=== PATIENT | female | born 1950 | race Caucasian/White ===

== ENCOUNTER 2021-07-16 11:46 | Outpatient (REF) | payer MEDICARE, SELFPAY ==
--- NOTE | ~2021-07-16 | MM_ITS ---
EXAMINATION: MM SCREENING DIGITAL BREAST TOMOSYNTHESIS, BILATERAL CLINICAL INFORMATION: Screening. Asymptomatic. The lifetime risk of breast cancer based on the Tyrer-Cuzick Model is 8%. COMPARISON: Mammography: 12/16/2019, 06/28/2019, 12/04/2018, 05/12/2018, 02/24/2017 TECHNIQUE: Digital breast tomosynthesis is performed in both the craniocaudal and mediolateral oblique views along with computer-aided detection (CAD). Synthesized 2D images are generated from the tomosynthesis. FINDINGS: There are scattered areas of fibroglandular density (ACR BI-RADS breast composition Category b). Parenchymal pattern is similar to prior studies. There is no interval significant mass or architectural abnormality or abnormal calcifications. Right breast again has chronic circumscribed smooth bordered oval mass upper outer quadrant. There are several dermal lesions overlying the posterior inferior right breast. Scattered bilateral vascular and ductal secretory and round calcifications are present. There are increased regional ductal secretory calcifications central right breast. The axilla are unremarkable. MM/MM tomosynthesis screening BI IMPRESSION: No significant changes from prior studies. ASSESSMENT: BI-RADS 2: Benign RECOMMENDATION: Routine annual mammography screening. This patient's information was entered into a reminder system with a target due date for their next mammogram.
== END 2021-07-16 11:47 | disposition home or self-care (01) ==
LOC: HO.MAMMO 11:46
PROVIDERS: Visit Provider Nurse Practitioner Family
DX: Z12.31 Encounter for screening mammogram for malignant neoplasm of breast (principal)
CPT/HCPCS: 77063; 77067

== ENCOUNTER 2021-10-08 12:55 | Outpatient (REF) | payer MEDICARE, SELFPAY ==
--- NOTE | 2021-10-08 16:51 | MHC.AU.ANR ---
Adult Audiological Evaluation Date of Visit: 10/08/21 Reason for Appointment: Audiological evaluation due to concern for decreased hearing. Ms. Ayala states that her family feels she's not hearing well. She notes that sometimes she has to ask for repetition, but generally feels she hears well. Does patient feel they have a hearing loss?: Unsure Has hearing been tested previously?: No Hearing Handicap Inventory: HHIE SCORE: 12 Based on HHIE score, patient has: Mild to moderate perceived hearing handicap Medical History: Medical History: Diabetes, Dizziness or Unsteadiness, High Blood Pressure, Measles, Stroke Medical History (Other): Uterine cancer treated surgically, hysterectomy. Stroke 10 years ago. Hypothyroidism Allergies: Lisinopril Medication List: Losartan, Levothyroxine, Hydrochlorothiazide, Metoprolol, Famotidine, Simvastatin, Clopidogrel bisulfate, Centrum Otoscopy: Right Ear: Unremarkable Left Ear: Unremarkable Tympanometry: Tympanometry performed due to: To assess integrity of the middle ear system Right Ear: Hypercompliant Middle Ear System (Type Ad) Left Ear: Normal Middle Ear System (Type A) Hearing Evaluation: Transducer(s) Used: Insert Earphones, Bone Conduction Method: Conventional Audiometry Stimuli Used: Pure Tones Right Ear: Description of Hearing: Mild hearing loss at 250 Hz, rising to normal hearing 500-1000 Hz, sloping to a mild sensorineural hearing loss 8186-6510 Hz, rising to normal hearing at 3000 Hz, and sloping to a mild to moderately-severe sensorineural hearing loss from 5317-4455 Hz. Left Ear: Description of Hearing: Mild hearing loss at 250 Hz, rising to normal hearing 500-1000 Hz, sloping to a mild sensorineural hearing loss 4691-6246 Hz, rising to normal hearing at 9014-0978 Hz, and sloping to a moderate to moderately-severe hearing loss from 4689-7212 Hz. Speech Recognition Threshold (SRT): Method Used: Monitored Live Voice Stimuli Used: Spondee Words Right Ear: 20 dBHL Left Ear: 20 dBHL Word Discrimination: Method: Recorded Lists Word Lists Used: NU-6 Right Ear: 92% at 60 dBHL Left Ear: 100% at 60 dBHL Recommendations: Audiological re-evaluation in one year to monitor the status of Ms. Ayala's hearing loss. Amplification is not warranted at this time. Hearing protection should be used when around loud noise. Diagnosis: Primary Diagnosis: H90.3 Bilateral Sensorineural Hearing Loss Services Performed: Services Performed: Comprehensive Audiological Evaluation (CPT 46133) Tympanometry (CPT 69667) Signature: Provider: Nathaniel Cervantes, CCC-A
== END 2021-10-08 12:56 | disposition home or self-care (01) ==
LOC: HO.SH 12:55
PROVIDERS: Visit Provider Registered Nurse
DX: H90.3 Sensorineural hearing loss, bilateral (principal)
CPT/HCPCS: 92557; 92567

== ENCOUNTER 2022-07-21 11:46 | Outpatient (REF) | payer MEDICARE, SELFPAY ==
--- NOTE | ~2022-07-21 | MM_ITS ---
EXAMINATION: MM SCREENING DIGITAL BREAST TOMOSYNTHESIS, BILATERAL CLINICAL INFORMATION: Screening. Asymptomatic. The lifetime risk of breast cancer based on the Tyrer-Cuzick Model is 6%. COMPARISON: Mammography: July 16, 2021 and studies dating back to July 14, 2012 TECHNIQUE: Digital breast tomosynthesis is performed in both the craniocaudal and mediolateral oblique views along with computer-aided detection (CAD). Synthesized 2D images are generated from the tomosynthesis. FINDINGS: There are scattered areas of fibroglandular density (ACR BI-RADS breast composition Category b). There are no new significant masses, abnormal calcifications, or other abnormalities. Stable right breast density upper outer aspect. Multiplicity and bilaterality of calcifications. MM/MM tomosynthesis screening BI IMPRESSION: No significant changes from prior exam. ASSESSMENT: BI-RADS 2: Benign RECOMMENDATION: Routine annual mammography screening. This patient's information was entered into a reminder system with a target due date for their next mammogram.
== END 2022-07-21 11:47 | disposition home or self-care (01) ==
LOC: HO.MAMMO 11:46
PROVIDERS: PCP Registered Nurse; Visit Provider Registered Nurse
DX: Z12.31 Encounter for screening mammogram for malignant neoplasm of breast (principal)
CPT/HCPCS: 77063; 77067

== ENCOUNTER → 2023-05-07 10:42 | Outpatient (REF) | payer MEDICARE, SELFPAY ==
--- NOTE | 2023-05-07 10:47 | CA_ITS ---
Transthoracic Echocardiogram Patient (Last, First, Middle): Dania Ayala R Gender: Female Date of : 1950 Age: 73 Procedure Date: 05/07/2023 Procedure Type: Transthoracic Echocardiogram Location: [facility] Height: 165.1 cm Weight: 81.65 kg BSA: 1.89 m2 Heart Rate: 71 bpm BP: 135 / 60 mmHg Commercial Assistant: FELIX Marinelli MD: Leilani Unger EDUCATION PARAPROFESSIONAL Mill Beam Fitter: Norris Boland MD Symptoms: LOWER EXT EDEMA Study Quality: Adequate ECG Rhythm: Sinus Conclusions: - 1. Normal LV systolic function with grade 1 diastolic dysfunction with upper limits of normal wall thickness 2. [id number] RV systolic dysfunction by TAPSE 3. Normal cardiac valvular Dopplers 4. Normal RV systolic pressure 5. No gross pericardial effusion Findings Procedure Information Contrast agent, definity, is being given per protocol without apparent complications. Left Ventricle Normal left ventricular size, thickness, and systolic function. The visually estimated ejection fraction is between 60-65%. Spectral Doppler is indicative of an impaired relaxation filling pattern. E/E prime ratio is <8, consistent with normal filling pressures. Evidence suggests grade I (mild) diastolic dysfunction. Right Ventricle Normal right ventricular cavity size. There is mild to moderately decreased right ventricular systolic function. Atria The left atrium is normal in size. Interatrial shunt cannot be excluded. The right atrium was not well visualized. Aortic Valve Normal aortic valve structure and function. There is no aortic valve stenosis. There is no aortic valve regurgitation. Mitral Valve There is mild anterior and posterior mitral leaflet thickening. There is trace mitral valve regurgitation. There is no mitral valve stenosis. Pulmonic Valve The pulmonic valve was not well visualized. Tricuspid Valve Likely normal tricuspid valve structure and function. There is mild tricuspid valve regurgitation. The right ventricular systolic pressure is normal. The right ventricular systolic pressure is 28 mmHg. Normal right atrial pressure. There is no evidence of pulmonary hypertension. Great Vessels All visible segments of the aorta are normal in size. The pulmonary artery was not well visualized. Venous The inferior vena cava is normal in size and collapses greater than 50% with inspiration. Pericardium/Pleural There is no evidence of pericardial effusion. Prior Study Comparison No prior study available for comparison. Measurements 2D Linear Measurements IVSd: 1.21 0.6-0.9/0.6-1.0 cm LVIDd: 3.93 3.9-5.3/4.2-5.9 cm LVIDd Index: 2.08 2.4-3.2/2.2-3.1 cm/m2 LVIDs: 2.73 2.0-3.6 cm LVPWd: 1.07 0.7-1.1 cm LA Diam: 3.40 2.7-3.8/3.0-4.0 cm LAIDs Index: 1.80 1.5-2.3 cm/m2 LV Mass: 185.94 67-162/88-224 g LV Mass Index: 98.38 43-95/49-115 g/m2 LVOT Diam: 1.90 3.0+(-)1.3 cm 2D Systolic Function EF 4C: 51.10 >55% EF 2C: 66.90 >55% EF BiP: 61.00 >55% Mitral Valve MV Pk E: 0.67 MV PK A: 1.01 MV Decel Time: 309.00 E/A: 0.70 E'Lateral: 9.36 E'Medial: 4.57 E/E' Med: 14.70 E/E' Lat: 7.20 PHT: 90.00 MVA PHT: 2.44 Decel [place]: 2.19 Aortic Valve AoV Pk Dax: 1.71 AoV Mn Dax: 1.02 AoV VTI: 0.29 AoV Pk Grad: 12.00 Aov Mn Grad: 5.00 ASYA Cont.VTI: 2.01 LVOT LVOT Pk Dax: 1.14 LVOT Mn Dax: 0.64 LVOT VTI: 0.21 LVOT Pk Grad: 5.00 LVOT Mn Grad: 2.00 LVOT Diam: 1.90 LVOT Area: 2.84 Diastolic Function MV Pk E: 0.67 MV Pk A: 1.01 E/A: 0.70 E'Medial: 4.57 E/E' Med: 14.70 E' Laterial: 9.36 E/E' Lat: 7.20 Right Ventricle TAPSE (mm): 14.60 TVS' Dax: 14.30 Tricuspid Valve TR Pk Dax: 2.51 TR Pk Grad: 25.00 RA Press: 3.00 RVSP: 28.00 Great Vessels Aorta Sinus of Valsalva: 3.20 2.0-3.5 cm Ao Asc: 3.20 2.1-3.4 cm Pulmonary Valve PV Pk Dax: 1.07 Peak PV Grad: 5.00 Updated in Other Vendor System with Status of Final Norris Boland MD electronically signed on 05/07/2023 4:22:51 PM with status of Final
== END ==
LOC: HO.CARD 10:42
PROVIDERS: PCP Registered Nurse; Visit Provider Registered Nurse
DX: R60.0 Localized edema (principal)
CPT/HCPCS: 93306; Q9957

== ENCOUNTER 2023-09-22 11:43 | Outpatient (AMB) | payer MEDICARE, SELFPAY ==
--- NOTE | 2023-09-22 12:33 | MHC.OFFWIV ---
Intake Vital Signs 09/22/23 12:40 Weight 183 lb 6 oz BP 130/68 Blood Pressure Location Lt brachial Position Sitting Pulse 56 Pulse Source Pulse Oximeter Temp 97.5 F Temp Source Temporal Artery Scan Pulse Oximetry (%) 96 Intake Visit Reasons: EP, chest congestion, cough (masked) Intake Note: pt is here for c/o chest congestion and cough Patient Tobacco Use Status: Never used Tobacco Allergies lisinopril [Lisinopril] Allergy (Intermediate, Verified 09/22/23 12:57) COUGH Medication List - Last Reconciled 09/22/23 by Jame Jorgensen MD clopidogrel 75 mg PO DAILY hydrochlorothiazide 25 mg PO DAILY insulin aspart (niacinamide) 100 unit/mL (3 mL) (Fiasp FlexTouch U-100 Insulin) subcut insulin glargine-lixisenatide 100 unit-33 mcg/mL (Soliqua 100/33) subcut levothyroxine 50 mcg PO DAILY losartan 75 mg PO DAILY metoprolol succinate ER 50 mg PO DAILY pen needle, diabetic (BD Ultra-Fine Kellie Pen Needle) As directed simvastatin 20 mg PO BEDTIME Do you need a note to return to daycare/school/sports/work: Yes HPI EP, chest congestion, cough (masked) HPI Details Patient presents for a sick visit. Reporting symptoms of sinus congestion, sore throat and difficulty swallowing. Low-grade fever. No family member is sick. No recent travel. Patient reports symptoms of malaise and fatigue. PFSH Social History Patient Tobacco Use Status: Never used Tobacco Physical Exam Vital Signs: Last Vital Signs Temp 97.5 F 09/22/23 12:40 Pulse 56 09/22/23 12:40 BP 130/68 09/22/23 12:40 Pulse Ox 96 09/22/23 12:40 Const General: cooperative and healthy appearing Nutritional Appearance: well nourished Orientation/consciousness: patient oriented x3 Limitations: no limitations HEENT Head: Yes normal to inspection Eyes General: appearance normal, both eyes and all related structures Neck Neck: Yes normal visual inspection Chest Chest palpation & inspection: normal palpation of entire chest wall Resp Effort & Inspection: normal respiratory effort Neuro General: patient oriented x3 Assessment & Plan Assessment & Plan (1) Upper respiratory tract infection: Code(s): J06.9 - Acute upper respiratory infection, unspecified Plan: Antibiotics ordered. Increase fluid intake. Tylenol for aches and pains. If symptoms worsen, follow-up here for a recheck. Coding Level of Care Code Est Pt Level 3 (45263) Diagnoses Upper respiratory tract infection J06.9
[2023-09-22 12:40] VITALS: BP 130/68; PULSE 56; TEMP 36.4; O2SAT 96
== END 2023-09-22 13:19 | disposition home or self-care (01) ==
PROVIDERS: PCP Registered Nurse; Visit Provider Internal Medicine
DX: J06.9 Acute upper respiratory infection, unspecified (principal)
CPT/HCPCS: 99213

== ENCOUNTER 2024-01-11 13:49 | Outpatient (REF) | payer MEDICARE, SELFPAY ==
--- NOTE | ~2024-01-11 | MM_ITS ---
EXAMINATION: MM SCREENING DIGITAL BREAST TOMOSYNTHESIS, BILATERAL CLINICAL INFORMATION: Screening. Asymptomatic. COMPARISON: Mammography: This study is compared with prior exams dating back to 2018. TECHNIQUE: Digital breast tomosynthesis is performed in both the craniocaudal and mediolateral oblique views along with computer-aided detection (CAD). Synthesized 2D images are generated from the tomosynthesis. FINDINGS: There are scattered areas of fibroglandular density (ACR BI-RADS breast composition Category b). There are no significant masses, abnormal calcifications, or other abnormalities. There is a long-standing, unchanged, oval 20 mm right breast mass in the upper outer quadrant. This is a benign entity. There are benign secretory calcifications in the lateral aspect of the right breast. MM/MM tomosynthesis screening BI IMPRESSION: No mammographic evidence of malignancy. ASSESSMENT: BI-RADS BI-RADS 2 - Benign Findings RECOMMENDATION: Routine annual mammography screening. 1 year F/U This examination should not preclude the clinical evaluation of a suspicious palpable abnormality. This patient's information was entered into a reminder system with a target due date for their next mammogram.
== END 2024-01-11 13:50 | disposition home or self-care (01) ==
LOC: HO.MAMMO 13:49
PROVIDERS: PCP Internal Medicine; Visit Provider Internal Medicine
DX: Z12.31 Encounter for screening mammogram for malignant neoplasm of breast (principal)
CPT/HCPCS: 77063; 77067

== ENCOUNTER → 2024-01-11 14:30 | Outpatient (BNV) | payer MEDICARE, SELFPAY | PROVIDERS: PCP Internal Medicine; Visit Provider Radiology Diagnostic Radiology | DX: Z12.31 Encounter for screening mammogram for malignant neoplasm of breast (principal) | CPT/HCPCS: 77063; 77067 ==

== ENCOUNTER 2025-03-28 15:54 | Outpatient (REF) | payer MEDICARE, SELFPAY ==
--- NOTE | ~2025-03-28 | US_ITS ---
EXAMINATION: US TRIPLEX LOWER EXTREMITY, RIGHT CLINICAL INFORMATION: Right leg edema. COMPARISON: None available. TECHNIQUE: Color-flow triplex imaging with spectral analysis and compression Doppler were performed on the right lower extremity. FINDINGS: Respiratory variation, normal compression and augmented flow are noted throughout the right lower extremity. The visualized common femoral vein, superficial femoral vein, profunda femoral vein, popliteal vein and midcalf peroneal and posterior tibial venous segments show no evidence of deep venous thrombosis. There is no Lockwood's cyst. The left common femoral vein is patent. US/US venous duplex LE RT IMPRESSION: No evidence of deep venous thrombosis involving the right lower extremity. Electronically signed by: Baltazar Sr MD 03/28/2025 04:58 PM EDT
== END 2025-03-28 15:55 | disposition home or self-care (01) ==
LOC: HO.US 15:54
PROVIDERS: PCP Internal Medicine
DX: R60.0 Localized edema (principal)
CPT/HCPCS: 93971

== ENCOUNTER → 2025-03-28 16:26 | Outpatient (BNV) | payer MEDICARE, SELFPAY | PROVIDERS: PCP Internal Medicine; Visit Provider Radiology Diagnostic Radiology | DX: R60.0 Localized edema (principal) | CPT/HCPCS: 93971 ==

== ENCOUNTER 2025-05-11 09:05 | Outpatient (REF) | payer MEDICARE, SELFPAY ==
--- NOTE | ~2025-05-11 | US_ITS ---
EXAMINATION: US TRIPLEX LOWER EXTREMITY, RIGHT CLINICAL INFORMATION: Edema, right lower extremity. COMPARISON: None available. TECHNIQUE: Color-flow triplex imaging with spectral analysis and compression Doppler were performed on the right lower extremity. FINDINGS: Respiratory variation, normal compression and augmented flow demonstrated throughout the interrogated common femoral vein, superficial femoral vein, profunda femoral vein, popliteal vein and midcalf peroneal and posterior tibial venous segments . There is no Lockwood's cyst. US/US venous duplex LE RT IMPRESSION: No acute deep venous thrombosis interrogated veins, right lower extremity. Negative for DVT. Electronically signed by: Emiliano Braga MD 05/11/2025 09:55 AM EDT
--- OUTSIDE RECORDS SUMMARY | 2025-05-11 09:41 | XMS_ITS ---
Author Organization [facility] Address [address] [place] [address] Care Team Providers Care Clinical Application Specialist Name Role Phone Deonte Callejas MD Primary Care Provider Caroline Jimenes Unavailable [phone] Rohini Jordan [phone] Encounters Encounter Location Date Provider Diagnosis [address] [address] 09/28/2024 Rohini Jordan Plan Of Treatment Next Appt Details Provider Name:Caroline burns, 07/24/2025 03:00:00 PM, [address] [place] [address], [id number], Progress Notes * Karolina AYALAOB:[birth year] (75 yo F)Acc No.[id number]:09/28/2024 Progress Note Patient:?Dania AYALA Provider:?Rohini Jordan DPM :1950???Age:74 Y???Sex:Female D ate:09/28/2024 Address:[address] [place] [address] Pcp:Deonte Callejas MD Subjective: * Chief Complaints: * ??? * Medical History:? Objective: * Vitals:? Assessment: Plan: * Treatment: * Images: * The named appointment provid er may or may not be the originator of this progress note, and it is not deemed complete until electronically signed by the appointment provider. Sign off status: Pending * Provider:?Rohini Jordan DPM Date:? Generated for Rosetta corona/Shanti/Stevie on:?05/11/2025 09:40 AM EDT
== END 2025-05-11 09:06 | disposition home or self-care (01) ==
LOC: HO.US 09:05
PROVIDERS: PCP Internal Medicine; Visit Provider Internal Medicine
DX: R60.0 Localized edema (principal)
CPT/HCPCS: 93971

== ENCOUNTER → 2025-05-11 09:10 | Outpatient (BNV) | payer MEDICARE, SELFPAY | PROVIDERS: PCP Internal Medicine; Visit Provider Radiology Diagnostic Radiology | DX: R60.0 Localized edema (principal) | CPT/HCPCS: 93971 ==

== ENCOUNTER 2025-06-29 14:44 | Outpatient (REF) | payer MEDICARE, SELFPAY ==
--- NOTE | ~2025-06-29 | XR_ITS ---
EXAMINATION: XR FEMUR, RIGHT CLINICAL INFORMATION: M79.5 - Residual foreign body in soft tissue COMPARISON: None available. TECHNIQUE: AP and lateral views of the right femur were obtained. FINDINGS: There is no bony abnormality. There is dense vascular calcification in the femoral and proximal arteries. There are evss-vh-hafmuwxu degenerative changes in the knee joint, most advanced at the patellofemoral joint. There is no knee joint effusion. There is moderate degenerative changes involving the pubic symphysis joint. XR/XR femur RT 2V IMPRESSION: Unremarkable right femur. Degenerative changes, as above Electronically signed by: Nolan Hernández MD 06/29/2025 03:55 PM EDT
== END 2025-06-29 14:45 | disposition home or self-care (01) ==
LOC: HO.HMGCX 14:44
PROVIDERS: PCP Internal Medicine; Visit Provider Nurse Practitioner Family
DX: M79.5 Residual foreign body in soft tissue (principal)
CPT/HCPCS: 73552; 99212

== ENCOUNTER 2025-06-29 14:44 | Outpatient (AMB) | payer MEDICARE, SELFPAY ==
--- OUTSIDE RECORDS SUMMARY | 2025-06-29 14:47 | XMS_ITS | Encounter Summary ---
Author Organization [facility] Address [address] [place] [id number] Phone Care Team Providers Care Inventory Administrator Name Role Phone Rohini Jordan DPM Unavailable [phone] Davi Gao MD Primary Care Provider [phone] Davi Gao MD Unavailable Beba Valadez MD Unavailable [phone] Reason for Visit * Reason Onset Date Comments mammogram order 06/26/2025 Encounter Details Date Type Department Care Team (Late st Contact Info) Description 06/26/2025 Telephone [facility] Internal Medicine [address], [place] [phone] Davi Gao MD [address] [place] [address] [email or web address] mammogram order Social History Tobacco Use Types Packs/Day Years Used Date Smoking Tobacco: Never Passive Smoke Exposure: Past Smokeless Tobacco: Never Alcohol Use Standard Drinks/Week Comments Not Currently 0 (1 standard drink = 0.6 oz pur e alcohol) Home Health Assessment: Transportation Answer Date Recorded Lack of Transportation (Medical) No 07/08/2023 Lack of Transportation (Non-Medical) No 07/08/2023 Patient Unable or Declines to Respond No 07/08/2023 Education Answer Date Recorded Are you interested in more education? Not on johanna e 03/27/2023 Are you concerned about learning? Not on file 03/27/2023 No 03/27/2023 No 03/27/2023 Digital Access Answer Date Recorded No 04/21/2023 No 04/21/2023 Reliable internet access at home? Not on file 04/21/2023 Device with a working camera? Not on file Comments Unknown Sex and Gender Information Value Date Recorded Sex Assigned at Female 05/25/2023 2:55 PM EDT Legal Sex Female 11:40 AM EDT Gender Identity Female 05/25/2023 2:55 PM EDT Sexual Orientation Straight 05/25/2023 2: 55 PM EDT documented as of this encounter Progress Notes * Rossy Nance - 06/28/2025 1:13 PM EDT Spoke to patient who requested orders be sent to [facility]. Called facility to get fax [phone]. Orders faxed and patient notified to call and schedule * Davi Gao MD - 06/28/2025 12:56 PM EDTAddended by: DAVI GAO on: 06/28/2025 12:56 PM Modules accepted: Orders * Audra Mccloud RN - 06/28/2025 9:03 AM EDTAddended by: AUDRA MCCLOUD on: 06/28/2025 09:03 AM Modules accepted: Orders * Audra Mccloud RN - 06/28/2025 9:03 AM EDT New orders pended * Angel Trujillo - 06/28/2025 8:54 AM EDT Patient called in states she would like to go [facility] as stated in the original message, for her mammogram and Ultrasound. States she has gotten previous mammograms done there and it is a mile away from her house. [facility] is too far to travel for her. Please advise on changing order. * Shireen Vincent RN - 06/26/2025 3:33 PM EDT Dania called back to clarify what is needing to be done. Advised on orders and reason for orders. * Shireen Vincent RN - 06/26/2025 3:09 PM EDT Spoke to Dania and advised, given scheduling number, she will call to schedule. * Davi Gao MD - 06/26/2025 2:49 PM EDT Bilateral diagnostic mammogram and right sided breast ultrasound ordered. * Angel Trujillo - 06/26/2025 10:26 AM EDT Patient called in states she would like an order for a mammogram, as she states a spot was found onher CT Chest done by her green hide inspector and he told her to get an mammogram done and to contact her PCP. Please advise on putting in order to [facility]. Please advise. CT scan in chart from, Exam Desc: CT Chest Without Contrast Exam date/time: 06/01/25, 3:22 PM Reason: * Lung nodule, 6-8mm Requesting Provider: Bishop Adams MD Compared to November 14, 2024: 1. Similar scattered sub-5 mm lung nodules. 2. 1.9 cm nodule in the right outer breast. Recommend a mammogram for further assessment. documented in this encounter Plan of Treatment Upcoming Encounters Date Type Department Care Team (Late st Contact Info) Description 08/07/2025 10:20 AM EDT Office Visit [facility] [address] [place] [address] Rylee Montero MD [address] [facility], [address]st [place] [address] [email or web address] 11/10/2025 1:00 PM EST Office Visit [facility] Internal Medicine [address] [place] [address] Davi Gao MD [address] [place] [address] [email or web address] 12/25/2025 9:30 AM EST Office Visit [facility] [address] [place] [address] Bishop Adams MD [address] [place] [address] [email or web address] Scheduled Orders Name Type Priority Associated Diagnoses Orde r Schedule Mammogram Diagnostic (Bilateral) Imaging Routine Mass of upper outer quadrant of right breast Expected: 06/26/2025, Expires: 09/26/2025 US Breast (Right) Imaging Routine Mass of upper outer quadrant of right breast Expected: 06/26/2025, Expires: 09/26/2025 documented as of this encounter Procedures Procedure Name Priority Date/Time Associated Diagnosis Comments BI US BREAST (RIGHT) Routine 06/28/2025 12:56 PM EDT Mass of upper outer quadrant of right breast BI MAMMOGRAM DIAGNOSTIC (BILATERAL) Routine 06/28/2025 12:56 PM EDT Mass of upper outer quadrant of right breast documented in this encounter Visit Diagnoses Diagnosis Mass of upper outer quadrant of right breast- Primary documented in this encounter Additional Health Concerns Assessment Noted Time PHQ-9 Depression Total Score: 9 10/07/20 10:14 AM EST PHQ-2 Depression Total Score: 2 10/26/20 12:46 PM EST documented as of this encounter Care Teams Inventory Administrator Relationship Specialty Start Date End Date Davi Gao MD [address] [place] [address] [email or web address] PCP - General Internal Medicine 05/05/23 Rohini Jordan DPM [address] [place] [id number] Podiatry 12/13/19 Davi Gao MD [address] [place] [address] [email or web address] Insurance Assigned Provider 03/05/24 Beba Valadez MD [address] [place] [id number] Ophthalmology 06/21/24 documented as of this encounter Additional Source Comments The information contained in this document represents components of the legal health record. It is not the complete legal health record.[facility]
--- OUTSIDE RECORDS SUMMARY | 2025-06-29 14:47 | XMS_ITS | Patient Health Record ---
Author Organization [facility] [place] Address [address] [place] [address] Care Team Providers Care Classified Advertising Manager Name Role Phone Júnior ROME, Deonte Primary Care Provider Caroline Jimenes Unavailable [phone] Rohini Jordan Unavailable [phone] Allergies Allergen (clinical drug ingredient) Drug/Non Drug Allergy documented on EMR Reaction Allergy Type Onset Date Status lisinopril Lisinopril Unknown Drug Allergy Activ e Reason For Referral No Information Medications Medication SIG (Take, Route, Frequency, Duration) Notes Start Date End Date Status Losartan Potassium 50 MG as directed Orally Active Metoprolol Tartrate 50 MG 1 tablet with food Orally Twice a day; Duration: 30 day(s) Active Multivitamin - as directed Orally Active Line [place] 3 1000 MG 1 capsule Orally Onc e a day; Duration: 30 day(s) Active NovoLOG 100 UNIT/ML as directed Subcutaneous Not-Taking Clopidogrel Bisulfate 75 MG 1 tablet Ora lly Once a day; Duration: 30 day(s) Not-Taking Compression Stockings 20-30mm Hg as directed With zippers 06/09/2023 Active Famotidine 40 MG Oral; Duration: 90 Days Active Plavix 75 MG 1 tablet Orally Once a day; Duration: 30 day(s) Active Simvastatin 20 MG 1 tablet in the evening Orally Once a day; Duration: 30 day(s) Active Vitamin E 100 UNIT 1 capsule Orally Onc e a day; Duration: 30 day(s) Active Gabapentin 100 MG 1 capsule Orally Onc e a day at night; Duration: 90 days PRN 10/10/2022 Active HumuLIN R Not-Taking Extra Depth Orthopedic Shoes (1 Pair) with Customized Heat Molded Multidensity Innersoles (3 Pair) as directed Dx: NIDDM/Polyneuropathy (E11.42), Hammertoe Foot Deformity (M20.41,M20.42), Preulcerative Skin Lesion(s) (L85.1 03/13/2023 Not-Taking Lansoprazole 30 MG Oral; Duration: 90 Days Not-Taking Coumadin Active Extra Depth Orthopedic Shoes (1 Pair) with Customized Heat Molded Multidensity Innersoles (3 Pair) as directed Dx: NIDDM/Polyneuropathy (E11.42), Hammertoe Foot Deformity (M20.41,M20.42), Preulcerative Skin Lesion(s) (L85.1 09/23/2019 Not-Taking Soliqua 100-33 UNT-MCG/ML Subcutaneous; Duration: 75 Days Active CoQ-10 30 MG 1 capsule with a garrett l Orally Once a day; Duration: 30 day(s) Active Victoza 18 MG/3ML as directed Subcutaneous Not-Taking hydroCHLOROthiazide 25 MG 1 tablet in th e morning Orally Once a day; Duration: 30 day(s) Active Levothyroxine Sodium 50 MCG 1 tablet on an empty stomach in the morning Orally Once a day; Duration: 30 day(s) Active Hydrocortisone 2.5 % as directed Externally to feet Twice a day; Duration: 30 days Active Neurontin 300 MG 1 capsule Orally Onc e a day at night; Duration: 90 days PRN 10/22/2021 Not-Taking Acetaminophen Extra Strength 500 MG 1 tablet as needed Orally every 6 hrs Active metFORMIN HCl 500 MG 1 tablet with a garrett l Orally Once a day; Duration: 30 day(s) Not-Taking Chromium Picolinate 200 MCG as directed Orally PRN Active Ranitidine 150 Max Strength 150 MG 1 tablet Orally Once a day; Duration: 30 day(s) Not-Taking Ciclopirox Olamine 0.77 % 1 application to affected area Externally to feet Twice a day; Duration: 30 days Active Basaglar KwikPen 100 UNIT/ML as directed Subcutaneous Not-Taking Immunizations Vaccine Route Administration Date Status Comme nts Influenza Unknown 08/01/2019 Administered Influenza Unknown 09/18/2021 Administered Influenza Unknown 05/13/2024 Refused COVID-19 Moderna Vaccine Unknown 01/12/2021 Administered First Dose:01/12/2021 Second Dose: 02/09/21 COVID-19 Moderna Vaccine Unknown 01/12/2021 Administered Social History Tobacco Use: Social History Observation Description Date Details (start date - stop date) Never Smoker NA - NA Tobacco use other than smoking: Question Answer Notes Are you an other tobacco user? No Tobacco Control (Standard) Question Answer Notes Tobacco use: Nonsmoker Additional Findings: Tobacco non-user Current no nsmoker AUDIT-C (Standard) Question Answer Notes Did you have a drink containing alcohol in the p ast year? No Points 0 Interpretation Negative Problems Problem Type SNOMED Code ICD Code Onset Dates Problem Status W/U Status Risk Notes Problem Polyneuropathy due to type 2 diabetes mellitus (810421758) Type 2 diabetes mellitus with diabetic polyneuropathy (E11.42) Active confirmed Problem Atherosclerosis of artery of both lower extremities (I70.203) Active confirmed Vital Signs Blood pressure diastolic 65 mm Hg 04/19/2025 Height 5ft 4in in 04/19/2025 Blood pressure systolic 128 mm Hg 04/19/2025 Weight 180 lbs 04/19/2025 BMI 30.89 kg/m2 04/19/2025 Procedures Procedure Date Ordered Date Performed Result Body Sit e 91311-UQFFHOO NAIL, 6 OR MORE 09/21/2024 N/A 26723-NDOD SKIN LESIONS, 2 TO 4 09/21/2024 N/A 43938-ESNWEMT NAIL, 6 OR MORE 12/28/2024 N/A 01500-GNSE SKIN LESIONS, 2 TO 4 12/28/2024 N/A 77867-YZKRDSH NAIL, 6 OR MORE 04/19/2025 N/A 24536-CZSC SKIN LESIONS, 2 TO 4 04/19/2025 N/A Encounters Encounter Location Date Provider Diagnosis [address] [address] 09/21/2024 Caroline Fan Tinea unguium B35.1 ; Atherosclerosis of artery of both lower extremities I70.203 and Type 2 diabetes mellitus with diabetic polyneuropathy E11.[address] [address] 12/28/2024 Caroline Fan Type 2 diabetes mellitus with diabetic polyneuropathy E11.42 and Tinea unguium B35.[address] [facility] [address] [address] 04/19/2025 Caroline Fan Type 2 diabetes mellitus with diabetic polyneuropathy E11.42 and Tinea unguium B35.[address] [facility] [address] 07/25/2024 Rohini Jordan [facility] [address] 08/31/2024 Rohini Jordan Assessments Encounter Date Diagnosis (ICD Code) Assessment Notes Treatment Notes Treatment Clinical Notes Section Notes 09/21/2024 Tinea unguium (ICD-10 - B35.1) 09/21/2024 Atherosclerosis of artery of both lower extremities (ICD-10 - I70.203) 12/28/2024 Type 2 diabetes mellitus with diabetic polyneuropathy (ICD-10 - E11.42) 12/28/2024 Tinea unguium (ICD-10 - B35.1) 04/19/2025 Type 2 diabetes mellitus with diabetic polyneuropathy (ICD-10 - E11.42) 04/19/2025 Tinea unguium (ICD-10 - B35.1) 09/21/2024 Type 2 diabetes mellitus with diabetic polyneuropathy (ICD-10 - E11.42) Plan Of Treatment Pending Test Test Name Order Date X ray : Foot, right 3V 06/11/2021 50437-JTIVZXR NAIL, 6 OR MORE 09/21/2024 36067-QSYYULM NAIL, 6 OR MORE 12/28/2024 13406-MNCUWHV NAIL, 6 OR MORE 04/19/2025 98515-OKVR SKIN LESIONS, 2 TO 4 04/19/20 78980-ZSQY SKIN LESIONS, 2 TO 4 12/28/19 25 93515-MQEX SKIN LESIONS, 2 TO 4 09/21/20 24 Next Appt Details Provider Name:Caroline Slaughter katy, 07/24/2025 03:00:00 PM, [address] [place] [address], [address], Insurance Providers Payer Name Payer Address Payer Phone Subscriber Number Group Number Insured Name Patient Relationship to Insured Coverage Start Date Coverage End Date Medicare National Govt [employer] [address] [facility] [place] [address] [id number] Dania Ayala Self - patient is the insured [employer] [facility] [address] [place] [address] [id number] Jamie Dania Self - patient is the insured Medical (General) History Medical History History ICD Code Cervical spondylosis type II diabetes Degenerative Disc disease Patent Foramen Ovale hip pain Trochanteric Bursitis Back pain Hypercholesterolemia microalbuminuria Hypothyroidism Stroke Chronic obstructive pulmonary disease (C OPD) Surgical History Surgery Date(Month/Year) cataract surgery cholecystectomy 2009 rotator cuff tear repair right 09/2008 tonsillectomy hysterectomy, total with bilateral salpi lee-oophorectomy (BSO) salpingo-oophorectomy Hospitalization History Reason Date(Month/Year) [facility]- dehydration 05/22
--- OUTSIDE RECORDS SUMMARY | 2025-06-29 14:48 | XMS_ITS | Patient Health Record ---
Author Organization [facility] Address [address] [place] [address] Care Team Providers Care Lead Ruby On Rails Developer Name Role Phone Fili Levy MD Primary Care Provider Unavail able Octavio Klein Unavailable [phone] Allergies Allergen (clinical drug ingredient) Drug/Non Drug Allergy documented on EMR Reaction Allergy Type Onset Date Status lisinopril Lisinopril Unknown Drug Allergy Activ e Reason For Referral No Information Medications Medication SIG (Take, Route, Frequency, Duration) Notes Start Date End Date Status Simvastatin 20 MG 1 tablet in the evening Orally Once a day Active Coenzyme Q-10 60 MG 1 capsule with a garrett l Orally Once a day Active hydroCHLOROthiazide 25 MG 1 tablet Orall y Once a day Active metFORMIN HCl 500 MG 2 tablet with meals Orally Twice a day Active Multi Vitamin/Minerals 1 1 Orally qd Active Metoprolol Succinate ER 50 MG 1 tablet O rally twice a day Active Vitamin E 100 UNIT 1 capsule Orally Onc e a day Active oxyCODONE HCl 5 MG 1 tablet Orally ever y 8 hrs/prn Active NovoLIN R 100 UNIT/ML 12 units Injection before breakfast,lunch and dinner Active Clopidogrel Bisulfate 75 MG 1 tablet Ora lly Once a day Active Gabapentin 300 MG 1 capsule Orally QHS Active Losartan Potassium 50 MG 1 tablet Orally Once a day Active [place]ison 3 1000 MG 1 capsule Orally Onc e a day Active NovoLIN N 100 UNIT/ML as directed Subcutaneous BID Active Levothyroxine Sodium 50 MCG 1 tablet on an empty stomach in the morning Orally Once a day Active Chromium Picolate 1000 MCG 1 Orally qd Active Problems Problem Type SNOMED Code ICD Code Onset Dates Problem Status W/U Status Risk Notes Problem 099834589 Encounter for screening for malignant neoplasm of colon (Z12.11) Active confirmed Problem 59819238 Hypertension (I10) Active confirmed Problem Screening for malignant neoplasm of rectum (534894578) Encounter for screening for malignant neoplasm of rectum (Z12.12) Active confirmed Problem 077990047 Anticoagulant long-term use (Z79.01) Active confirmed Plan Of Treatment Future Test Test Name Order Date COLONOSCOPY 12/17/2016 Insurance Providers Payer Name Payer Address Payer Phone Subscriber Number Group Number Insured Name Patient Relationship to Insured Coverage Start Date Coverage End Date MEDICARE OF [place] [address] [place] [address] [id number] KATELYNN NIXON Self - patient is the insured [employer] CLAIMS [address] [place] [address] [phone] [id number] KATELYNN NIXON Self - patient is the insured Medical (General) History Medical History History ICD Code Screening colonoscopy in 200 5--small tubular adenomas removed; colonoscopy 11-15-2010 negative except for diverticulosis and internal hemorrhoids IDDM Hypertension CVA---weak right hand and mild facial dr oop Denies OR,Lung disease,renal disease Back pain Hyperlipidemia Hypothyroidism Surgical History Surgery Date(Month/Year) tonsillectomy SUDHA tubal ligation rotator cuff tear repair--right cataract-lens implants-both eyes
[2025-06-29 14:50] VITALS: BP 158/60; PULSE 48; TEMP 36.5; O2SAT 98
--- NOTE | 2025-06-29 14:50 | AM.OFFWIN_ITS ---
Intake Vital Signs 3 06/29/25 14:50 06/29/25 14:56 Height 5 ft 5 in Weight 180 lb BMI 30.0 BP 158/60 H 160/92 H Blood Pressure Location Lt brachial Lt brachial Position Sitting Sitting Pulse 48 L Pulse Source Pulse Oximeter Temp 97.7 F Temp Source Oral Pulse Oximetry (%) 98 Oxygen Delivery Method Room Air Intake Visit Reasons: EP ? needle on RT leg-from injection Intake Note: presents with concern for needle being imbedded in right thigh after insulin injection this morning Patient Tobacco Use Status: Never used Tobacco Allergies lisinopril (Lisinopril) Allergy (Intermediate, Verified 06/29/25 14:52) COUGH Do you need a note to return to daycare/school/sports/work: No HPI HPI Comments 2 History of Present Illness0 Details 75 y/o Female patient who presents to [facility] walk in clinic with c/o Foreign Body right thigh. She noticed needle missing after she completed injecting Insulin. She placed the syringe on a Stirling immediately after completing the injection. She not sure if the needle is inside her thigh or Fell of from the syringe. She unable to palpate it and denies any discomfort or pain. It was a clean unused insulin needle ~ 5/32 32g in size. [facility] Medical History (Updated 06/29/25 @ 15:29 by Debra Contreras NP) Foreign body (FB) in soft tissue Social History Patient Tobacco Use Status: Never used Tobacco Review of Systems Const All systems reviewed & are unremarkable except as noted in HPI and below Physical Exam Vital Signs: Last Vital Signs Temp 97.7 F 06/29/25 14:50 Pulse 48 L 06/29/25 14:50 BP 160/92 H 06/29/25 14:56 Pulse Ox 98 06/29/25 14:50 Oxygen Delivery Method Room Air 06/29/25 14:50 BMI result Body Mass Index 30.0 Const General: no acute distress Nutritional Appearance: obese Orientation/consciousness: patient oriented x3 Skin Full body images: 2 1. Small puncture needle 2inch above knee. Unable to palpate any sharp FB. Neuro General: patient oriented x3 Assessment & Plan Assessment & Plan (1) Foreign body (FB) in soft tissue: Code(s): M79.5 - Residual foreign body in soft tissue Plan: Ordered Xray Right Femur Orders: Orders 2 XR femur RT 2V Today M79.5 - Residual foreign body in soft tissue Coding Level of Care Code Est Pt Level 4 (63950) Diagnoses Foreign body (FB) in soft tissue M79.5 Time Spent (min) 20
[2025-06-29 14:56] VITALS: BP 160/92
== END 2025-06-29 15:35 | disposition home or self-care (01) ==
PROVIDERS: PCP Internal Medicine; Visit Provider Nurse Practitioner Family
DX: M79.5 Residual foreign body in soft tissue (principal)

== ENCOUNTER → 2025-06-29 15:32 | Outpatient (BNV) | payer MEDICARE, SELFPAY | PROVIDERS: PCP Internal Medicine; Visit Provider Radiology Diagnostic Radiology | DX: M17.11 Unilateral primary osteoarthritis, right knee (principal) | CPT/HCPCS: 73552 ==

== ENCOUNTER 2025-08-29 12:17 | Outpatient (REF) | payer MEDICARE, SELFPAY ==
--- OUTSIDE RECORDS SUMMARY | 2024-09-28 06:00 | XMS_ITS ---
Author Organization [facility] Address [address] [place] [address] Care Team Providers Care Marketing Services Manager Name Role Phone Deonte Callejas MD Primary Care Provider Caroline Jimenes Unavailable [phone] Rohini Jordan Unavailable [phone] Encounters Encounter Location Date Provider Diagnosis [address] [address] 09/28/2024 Rohini Jordan Plan Of Treatment Next Appt Details Provider Name:Caroline burns, 10/30/2025 02:00:00 PM, [address] [place] [address], [id number], Progress Notes * Karolina AYALAOB:[birth year] (75 yo F)Acc No.[id number]:09/28/2024 Progress Note Patient: Joan MTZBRIANDania Provider: Jesica Jordan DPM :1950 A ge:74 Y S ex:Female Date:09/28/2024 Address:[address] [place] [address] Pcp:Deonte Callejas MD Subjective: * Chief Complaints: * * Medical History: Objective: * Vitals: Assessment: Plan: * Treatment: * Images: * The named appointment provid er may or may not be the originator of this progress note, and it is not deemed complete until electronically signed by the appointment provider. Sign off status: Pending * Provider: Jesica Jordan, WISAM Date: 1 Generated for Rosetta corona/Shanti/Stevie on: 0 08/29/2025 01:20 PM EDT
--- NOTE | ~2025-08-29 | US_ITS ---
EXAMINATION(S): 1. MM DIAGNOSTIC DIGITAL BREAST TOMOSYNTHESIS, BILATERAL 2. Targeted ultrasound of the right breast CLINICAL INFORMATION: - Requisition describes right breast lump at upper outer quadrant. A chest CT study obtained at outside facility on June 01, 2025 describes a 1.9 cm nodule in the right upper breast. Recommend mammogram for further assessment . Addendum created on July 10, 2025 following reviewing of mammogram from July 21, 2022 describes: The 1.9 cm nodule in the right upper breast was seen on prior mammogram with a similar size. Given long-term stability, it most likely represents a benign lesion. -According to patient, patient does not feel lump. However, the patient states left breast pain for one year. - Note that the ordering provider's office was contacted for clarification by the technologist. Dr. Callejas was out of the office today. The provider covering for him instructed us to proceed with right breast ultrasound for evaluation of the CT finding. And in regards to the left breast pain, he told us that the patient would be clinically evaluated before proceeding with left breast ultrasound. COMPARISON: Comparison made to multiple prior mammograms, most recent January 11, 2024, and most remote February 24, 2017. TECHNIQUE: Digital breast tomosynthesis is performed in both the mediolateral oblique and craniocaudal views along with computer-aided detection (CAD). Synthesized 2D images are generated from the tomosynthesis. A triangular skin marker was placed at the location of the focal pain in the left breast. FINDINGS: BREAST COMPOSITION: There are scattered areas of fibroglandular density. RIGHT BREAST: An approximately 2.0 cm oval mass in the upper outer quadrant at about 7-8 cm from the nipple is unchanged from multiple prior studies as far back as 2017 (MLO 25/). No significant masses, suspicious calcifications or other abnormalities are seen. Targeted ultrasound of the right breast was performed at the location of the mammographic finding. The survey shows a 2.3 x 0.9 x 1.9 cm simple cyst at 9 o'clock position at 8 cm from the nipple. LEFT BREAST: No significant masses, suspicious calcifications or other abnormalities are seen. In particular, no suspicious mammographic findings adjacent to the triangular skin marker placed in the lower inner quadrant. US/US Breast RT Limited Mamm Only IMPRESSION: RIGHT BREAST: Simple cyst at 9 o'clock position at 8 cm from the nipple correlates with the mammographic mass and with the CT finding. Benign, no mammographic evidence of malignancy. Normal interval follow-up is recommended in 12 months. LEFT BREAST: Negative, no mammographic evidence of malignancy. However, the focal pain was not evaluated with ultrasound, by instructions from the ordering physician's office. Clinical follow-up is recommended. If the clinical concern persists, a target ultrasound can be performed. Otherwise, normal interval follow-up mammogram is recommended in 12 months. ASSESSMENT: BI-RADS: Category 2: Benign RECOMMENDATION: 1. Patient should be managed based on the clinical impression. 2. Otherwise, routine annual screening mammography. Results were provided to the patient at time of visit by the technologist. This patient's information was entered into a reminder system with a target due date for their next mammogram. Electronically signed by: Dante Rutherford MD 08/29/2025 05:40 PM EDT
--- OUTSIDE RECORDS SUMMARY | 2025-08-29 13:20 | XMS_ITS | Patient Health Record ---
[facility] [place] Address [address] [place] [address] Care Team Providers Care Sleeping Bag Filler Name Role Phone Júnior ROME, Deonte Primary Care Provider Caroline Jimenes Unavailable [phone] Rohini Jordan Unavailable [phone] Allergies Allergen (clinical drug ingredient) Drug/Non Drug Allergy documented on EMR Reaction Allergy Type Onset Date Status lisinopril Lisinopril Unknown Drug Allergy Activ e Results Component Value Reference Range Notes HEMOGLOBIN A1C (GLYCOHEMOGLO BIN) Reviewed date:07/24/2025 03:30:31 PM Interpretation: Performing Lab: Notes/Report: HEMOGLOBIN A1C % (HH) 7.0 Reason For Referral No Information Medications Medication SIG (Take, Route, Frequency, Duration) Notes Start Date End Date Status Chromium Picolinate 200 MCG as directed Orally PRN Active Ciclopirox Olamine 0.77 % 1 application to affected area Externally to feet Twice a day; Duration: 30 days Active Hydrocortisone 2.5 % as directed Externally [...] Once a day; Duration: 30 day(s) Not-Taking Lansoprazole 30 MG Oral; Duration: 90 Days Not-Taking Coumadin Active Extra Depth Orthopedic Shoes (1 Pair) with Customized Heat Molded Multidensity Innersoles (3 Pair) as directed Dx: NIDDM/Polyneuropathy (E11.42), Cristel Foot Deformity (M20.41,M20.42), Preulcerative Skin Lesion(s) (L85.1 09/23/2019 Not-Taking HumuLIN R Not-Taking Extra Depth Orthopedic Shoes (1 Pair) with Customized Heat Molded Multidensity Innersoles (3 Pair) as directed Dx: NIDDM/Polyneuropathy (E11.42), Hammertoe Foot Deformity (M20.41,M20.42), Preulcerative Skin Lesion(s) (L85.1 03/13/2023 Not-Taking Famotidine 40 MG Oral; Duration: 90 Days Active Soliqua 100-33 UNT-MCG/ML Subcutaneous; Duration: 75 Days Active Gabapentin 100 MG 1 capsule Orally Onc e a day at night; Duration: 90 days PRN 10/10/2022 Active Compression Stockings 20-30mm Hg as directed With zippers 06/09/2023 Active Vitamin E 100 UNIT 1 capsule Orally Onc e a day; Duration: 30 day(s) Active Plavix 75 MG 1 tablet Orally Once a day; Duration: 30 day(s) Active Simvastatin 20 MG 1 tablet in the evening Orally Once a day; Duration: 30 day(s) Active Multivitamin - as directed Orally Active Bryan 3 1000 MG 1 capsule Orally Onc e a day; Duration: 30 day(s) Active Losartan Potassium 50 MG as directed Orally Active Metoprolol Tartrate 50 MG 1 tablet with food Orally Twice a day; Duration: 30 day(s) Active hydroCHLOROthiazide 25 MG 1 tablet in th e morning Orally Once a day; Duration: 30 day(s) Active NovoLOG 100 UNIT/ML as directed Subcutaneous Not-Taking Levothyroxine Sodium 50 MCG 1 tablet on an empty stomach in the morning Orally Once a day; Duration: 30 day(s) Active Clopidogrel Bisulfate 75 MG 1 tablet Ora lly Once a day; Duration: 30 day(s) Not-Taking Basaglar KwikPen 100 UNIT/ML as directed Subcutaneous Not-Taking CoQ-10 30 MG 1 capsule with a garrett l Orally Once a day; Duration: 30 day(s) Active Victoza 18 MG/3ML as directed Subcutaneous Not-Taking Ranitidine 150 Max Strength 150 MG 1 tablet Orally Once a day; Duration: 30 day(s) Not-Taking Immunizations Vaccine Route Administration Date Status [...] Polyneuropathy due to type 2 diabetes mellitus (927728587) Type 2 diabetes mellitus with diabetic polyneuropathy (E11.42) Active confirmed Problem Bilateral atherosclerosis of arteries of lower limbs (disorder) (69032605232025110 ) Atherosclerosis of artery of both lower extremities (I70.203) Active confirmed Vital Signs Blood pressure diastolic 65 mm Hg 07/24/2025 Height 5ft 4in in 07/24/2025 Blood pressure systolic 128 mm Hg 07/24/2025 Weight 180 lbs 07/24/2025 BMI 30.89 kg/m2 07/24/2025 Procedures Procedure Date Ordered Date Performed Result Body Sit e 63321-FDFDECE NAIL, 6 OR MORE 09/21/2024 N/A 53917-WTXV SKIN LESIONS, 2 TO 4 09/21/2024 N/A 19093-TWHFQDH NAIL, 6 OR MORE 12/28/2024 N/A 98946-FTRN SKIN LESIONS, 2 TO 4 12/28/2024 N/A 87560-DTNQLOF NAIL, 6 OR MORE 04/19/2025 N/A 22962-AEXA SKIN LESIONS, 2 TO 4 04/19/2025 N/A 15710-MRDJEZJ NAIL, 6 OR MORE 07/24/2025 N/A 20380-FJKY SKIN LESIONS, 2 TO 4 07/24/2025 N/A Encounters Encounter Location Date Provider Diagnosis [facility] [place] [address] [place] [address] 09/21/2024 Caroline Fan Tinea unguium B35.1 ; Atherosclerosis of artery of both lower extremities I70.203 and Type 2 diabetes mellitus with diabetic polyneuropathy E11.[address] [address] 12/28/2024 Caroline Fan Type 2 diabetes mellitus with diabetic polyneuropathy E11.42 and Tinea unguium B35.[address] [address] 04/19/2025 Caroline Fan Type 2 diabetes mellitus with diabetic polyneuropathy E11.42 and Tinea unguium B35.[address] [address] 07/24/2025 Caroline Fan Type 2 diabetes mellitus with diabetic polyneuropathy E11.42 and Tinea unguium B35.[address] [address] 08/31/2024 Rohini Jordan Assessments Encounter Date Diagnosis [...] E11.42) 04/19/2025 Tinea unguium (ICD-10 - B35.1) 07/24/2025 Type 2 diabetes mellitus with diabetic polyneuropathy (ICD-10 - E11.42) 07/24/2025 Tinea unguium (ICD-10 - B35.1) 09/21/2024 Type 2 diabetes mellitus with diabetic polyneuropathy (ICD-10 - E11.42) Plan Of Treatment Pending Test Test Name Order Date X ray : Foot, right 3V 06/11/2021 62376-LLLZPEP NAIL, 6 OR MORE 09/21/2024 78110-IEVORBC NAIL, 6 OR MORE 12/28/2024 05107-SQFVPPG NAIL, 6 OR MORE 04/19/2025 52471-NDWMAEN NAIL, 6 OR MORE 07/24/2025 00962-YFLN SKIN LESIONS, 2 TO 4 07/24/20 99225-WYWT SKIN LESIONS, 2 TO 4 04/19/20 82093-FIBP SKIN LESIONS, 2 TO 4 12/28/19 05257-DHPY SKIN LESIONS, 2 TO 4 09/21/20 24 Next Appt Details Provider Name:Caroline burns, 10/30/2025 02:00:00 PM, [address] [place], [address], Insurance Providers Payer Name Payer Address Payer Phone Subscriber Number Group Number Insured Name Patient Relationship to Insured Coverage Start Date Coverage End Date Medicare National Govt [employer] [address] [facility] [address] [id number] Dania Ayala Self - patient is the insured [employer] [address] [place] [address] [id number] Dania Ayala Self - patient is the insured Medical (General) History Medical History History ICD Code Cervical spondylosis type II diabetes Degenerative Disc disease Patent Foramen Ovale hip pain Trochanteric Bursitis Back pain Hypercholesterolemia microalbuminuria Hypothyroidism Stroke Chronic obstructive pulmonary disease (C OPD) Surgical History Surgery Date(Month/Year) cataract surgery cholecystectomy 2008 rotator cuff tear repair right 09/2008 tonsillectomy hysterectomy, total with bilateral salpi lee-oophorectomy (BSO) salpingo-oophorectomy Hospitalization History Reason Date(Month/Year) [facility]- dehydration 05/22
--- OUTSIDE RECORDS SUMMARY | 2025-08-29 13:20 | XMS_ITS | Clinical Summary ---
Author Organization [facility] Address [address] [place] [address] Phone Care Team Providers Care Drier Operator Head Name Role Phone Physician, No Pcp Primary Care Provider Unavaila ble Allergies Active Allergy Reactions Criticality Noted Date Comments Lisinopril Cough 01/27/2008 cough Encounters Date Type Department Care Team Description 07/11/2025 3:51 PM EDT - 07/11/2025 6:20 PM EDT Emergency [facility] Emergency [address] [place] [address] Discharge Disposition: Home or Self Care from Last 3 Months Surgical History Surgery Date Site/Laterality Comments TONSILLECTOMY PROCEDURE: HISTORICAL TONSILLECTOMY TUBAL LIGATION PROCEDURE: HISTORICAL TUBAL LIGATION HYSTERECTOMY PROCEDURE: HISTORICAL TOTAL HYSTERECTOMY WITH BSO CHOLECYSTECTOMY PROCEDURE: HISTORICAL CHOLECYSTECTOMY SHOULDER SURGERY 09/2008 PROCEDURE: HISTORICAL SHOULDER SURGERY Medical History Medical History Date Comments Type II or unspecified type diabetes mellitus without mention of complication, uncontrolled 01/27/2008 DX:Type II or unspecified t ype diabetes mellitus without mention of complication, uncontrolled; COMMENT: Onset approximately 1992 Essential hypertension, benign 01/27/2008 D X:Essential hypertension, benign Hypercholesteremia 05/25/2008 DX:Hyperchole steremia DM (diabetes mellitus), type 2 with renal complications ([facility] V24, [facility] V28) 04/10/2014 DX:DM (diabetes mellitus), t ype 2 with renal complications ([facility]) Microalbuminuria 01/27/2008 DX:Microalbumin uria Hemiparesis as late effect o f cerebrovascular accident (CVA) ([facility] V24, [facility] V28) 07/29/2015 DX:Hemiparesis as late effec t of cerebrovascular accident (CVA) ([facility]); COMMENT: 11/18/2014 r arm and leg weakness Family History Medical History Relation Name Comments Breast cancer Aunt maternal aunt Other: liver cancer Brother at 69-agent orange exposure Other: COPD Father emphysema Heart attack Maternal Grandfather Pneumonia Maternal Grandmother Other: COPD Mother and Alzheimer'd ied at 92 Other: liver cancer Other 1 maternal first cousin Other: Other Other 2 maternal first cousin- elephant man dis Cervical cancer Other 3 niece Heart attack Paternal Grandfather Arthritis Paternal Grandmother in her 80s Breast cancer Sister 1 45 Breast cancer Sister 2 65 Leukemia Uncle at 30 Colon cancer Neg Hx Ovarian cancer Neg Hx Relation Name Status Comments Aunt Brother Father Maternal Grandfather Maternal Grandmother Mother Other 1 Other 2 Other 3 Paternal Grandfather Paternal Grandmother Sister 1 45 Alive Sister 2 65 Uncle Social History Tobacco Use Types Packs/Day Years Used Date Smoking Tobacco: Never Smokeless Tobacco: Never Alcohol Use Standard Drinks/Week Comments No 0 (1 standard drink = 0.6 oz pur e alcohol) Comments Unknown Sex and Gender Information Value Date Recorded Sex Assigned at Female 06/29/2025 11:32 AM EDT Legal Sex Female 6:43 AM EST Gender Identity Female 06/29/2025 11:32 AM EDT Sexual Orientation Straight 06/29/2025 11 :32 AM EDT Obstetrics History Last Filed Vital Signs Vital Sign Reading Time Taken Comments Blood Pressure 146/45 07/11/2025 3:57 PM EDT Pulse 62 07/11/2025 3:57 PM EDT Temperature 36.7 C (98 F) 07/11/2025 3:57 PM EDT Respiratory Rate 16 07/11/2025 3:57 PM EDT Oxygen Saturation 95% 07/11/2025 3:57 PM EDT Inhaled Oxygen Concentration - - Weight 81.6 kg (180 lb) 07/11/2025 3:57 PM EDT Height 162.6 cm (5' 4 ) 07/11/2025 3:57 PM EDT Body Mass Index 30.9 07/11/2025 3:57 PM EDT Plan of Treatment Health Maintenance Due Date Last Done Comments Diabetes: Annual Foot Exam 1959 Diabetes: Annual Retina Eye Exam 1959 DTaP,Tdap,and Td Vaccines (1 - Tdap) 1968 Zoster Vaccines (1 of 2) 1999 RSV Immunization Adult Patients (1 - 1-dose 75+ series) 2024 Depression Screening 11/30/2024 Diabetes: Annual GFR (Glomerular Filtration Rate) 06/21/2025 06/21/2024, 06/11/2020, 12/13/2019 Colorectal Cancer Screening: Colonoscopy 07/12/2025 Diabetes: Annual Urine Albumin-Creatinine Ratio (uACR) 07/12/2025 06/11/2020, 12/13/2019 Falls Risk Assessment 07/12/2025 Hypertension/CHF/CAD Annual BMP Blood Test 07/12/2025 06/21/2024, 06/11/2020, 12/13/2019 Medicare Annual Wellness Visit 07/12/2025 Osteoporosis Screening (Bone Density Screening) 07/12/2025 Social Influencers of Health Screening 07/12/2025 COVID-19 Vaccine ( season) 2025 02/09/2021, 01/12/2021 Influenza Vaccine (#1) 2025 2, 09/23/2021, 09/18/2021, Additional history exists Diabetes: Blood Sugar Control Test (HGBA1C) 10/12/2025 04/11/2025 Cholesterol Screening (Lipid Panel) 05/10/2030 05/10/2025 Breast Cancer Screening Discontinued 12/24/2018 Pneumococcal Vaccine: 50+ Years Completed 06/11/2020, 12/19/2016 Hepatitis C Screening Completed 06/21/2024 HIB Vaccines Aged Out No longer eligi ble based on patient's age to complete this topic HPV Vaccines Aged Out No longer eligi ble based on patient's age to complete this topic Hepatitis A Vaccines Aged Out No long er eligible based on patient's age to complete this topic Hepatitis B Vaccines Aged Out No long er eligible based on patient's age to complete this topic IPV Vaccines Aged Out No longer eligi ble based on patient's age to complete this topic MMR Vaccines Aged Out No longer eligi ble based on patient's age to complete this topic Meningococcal ACWY Vaccine Aged Out N o longer eligible based on patient's age to complete this topic Meningococcal B Vaccine Aged Out No l onger eligible based on patient's age to complete this topic RSV Immunization Patients Under 20 months Aged Out No longer eligible based on patient's age to complete this topic Varicella Vaccines Aged Out No longer eligible based on patient's age to complete this topic Procedures Procedure Name Priority Date/Time Associated Diagnosis Comments DX MAMMO INCL CAD UNI Routine 12/24/2018 1:59 PM EST Mastodynia from Last 3 Months or Most Recently Relevant to Health Maintenance Results * DX MAMMO INCL CAD UNI (12/24/2018 1:59 PM EST) Anatomical Region Laterality Modality Mammography 12/09/2018 10:0 2 AM EST Narrative 12/24/2018 2:38 PM EST This is a summary report. The complete report is available in the patient's medical record. If you cannot access the medical record, please contact the sending organization for a detailed fax or copy. History: Left breast pain. Perception of increasing left breast size. Diagnostic left mammography and limited left breast ultrasound: CC, MLO and exaggerated cc views of the left breast were reviewed with computer-aided detection and compared to previous dated 05/12/2018 and 06/11/2015. The breast tissue consists of a mixture of fatty and fibroglandular elements. There are no suspicious masses or microcalcifications. There have been no appreciable interval changes. There is no mammographic and dictation of significant change in breast size compared to 06/11/2015. Ultrasound of the symptomatic area in the left breast was performed. The patient indicated predominantly retroareolar pain. The retroareolar portions of all 4 quadrants was evaluated sonographically. The breast architecture is sonographically normal. There is no evidence of cyst, nodule or mass. Impression: Negative diagnostic left mammography and negative left breast ultrasound. BI-RADS Category 1, negative. 5 year breast cancer risk assessment 6.9 % Lifetime breast cancer risk assessment 20.0 % Breast cancer risk category High (>20%) Procedure Note Dimas Zee MD - 11/18/2022 This is a summary report. The complete report is available in thepatient's medical record. If you cannot access the medical record, pleasecontact the sending organization for a detailed fax or copy. History: Left breast pain. Perception of increasing left breast size. Diagnostic left mammography and limited left breast ultrasound: CC, MLOand exaggerated cc views of the left breast were reviewed withcomputer-aided detection and compared to previous dated 05/12/2018 and06/11/2015. The breast tissue consists of a mixture of fatty andfibroglandular elements. There are no suspicious masses ormicrocalcifications. There have been no appreciable interval changes.There is no mammographic and dictation of significant change in breastsize compared to 06/11/2015. Ultrasound of the symptomatic area in theleft breast was performed. The patient indicated predominantlyretroareolar pain. The retroareolar portions of all 4 quadrants wasevaluated sonographically. The breast architecture is sonographicallynormal. There is no evidence of cyst, nodule or mass. Impression: Negative diagnostic left mammography and negative left breastultrasound. BI-RADS Category 1, negative. 5 year breast cancer risk assessment 6.9 % Lifetime breast cancer risk assessment 20.0 % Breast cancer risk category High (>20%) us Ariana Light [employer] IMG BI PROCEDURES Helen l Result from Last 3 Months or Most Recently Relevant to Health Maintenance Insurance MEDICARE [facility] Care Teams Drier Operator Head Relationship Specialty Start Date End Date Physician, No Pcp PCP - General 07/11/25
--- OUTSIDE RECORDS SUMMARY | 2025-08-29 13:20 | XMS_ITS | Clinical Summary ---
Author Organization [facility] Address [address] [place] [id number] Phone Care Team Providers Care Rn Dermatology Name Role Phone Rohini Jordan DPM Unavailable [phone] Deonte Callejas MD Primary Care Provider [phone] Deonte Callejas MD Unavailable Beba Valadez MD Unavailable [phone] Allergies Active Allergy Reactions Criticality Noted Date Comments Lisinopril Cough 07/21/2019 Medications MULTIVITAMIN ORAL Take 1 capsule by mouth daily. Active acetaminophen (TYLENOL) 500 MG tablet Take 500 mg by mouth every 6 (six) hours as needed for pain (specific location in comments). Active cholecalciferol (VITAMIN D3) 25 MCG (1,000 unit) tablet Take 1,000 Units by mouth daily. Active nystatin creamIndications:Lea ap skin infection Apply topically 2 (two) times a day. To chest 30 g 2020 Active FREESTYLE NIKITA 2 READER MiscIndications:Type II diabetes mellitus with renal manifestations, uncontrolled 1 each by Miscellaneous route daily as needed. Used to scan sensor to retrieve blood glucose readings as often as needed 1 each 2021 Active FREESTYLE NIKITA 2 SENSOR KitIndications:Type II diabetes mellitus with renal manifestations, uncontrolled 1 each by Miscellaneous route every 14 (fourteen) days. 1 kit 11 2021 Active hydrocortisone 2.5 % cream as directed Externally to feet Twice a day for 30 days Active econazole nitrate 1 % cream Apply 1 application. topically daily. 2022 Active BD YUNIOR 2ND GEN PEN NEEDLE 32 gauge x /32 NdleIndications:Type 2 diabetes mellitus without complication, with long-term current use of insulin 1 each by Miscellaneous route 4 (four) times a day. 340 each 3 2022 Active clopidogrel (PLAVIX) 75 mg tablet take one tablet by mouth every day 90 tablet 3 2023 Active magnesium chloride (SLOW-MAG) 596 mg (71.5 mg elemental) TbEC Take 1 tablet (596 mg total) by mouth nightly at bedtime. 90 tablet 4 2023 Active Additional Information Patient not taking.Reported on 08/07/2025 insulin glargine 100 unit/mL (3 mL) InPn injection penIndications:Type 2 diabetes mellitus with both eyes affected by mild nonproliferative retinopathy without macular edema, with long-term current use of insulin,Type 2 diabetes mellitus with diabetic mononeuropathy, with long-term current use of insulin Inject 40 Units under the skin daily. E11.9 45 mL 3 2024 Active gabapentin (NEURONTIN) 100 MG capsuleIndications:Typ e 2 diabetes mellitus with both eyes affected by mild nonproliferative retinopathy without macular edema, with long-term current use of insulin,Type 2 diabetes mellitus with diabetic mononeuropathy, with long-term current use of insulin Take 1 capsule (100 mg total) by mouth 3 (three) times a day. E11.40 90 capsule 1 2024 Active Additional Information Patient taking differently:100 mg OralAs needed, E11.40, Reported on 08/07/2025 simvastatin (ZOCOR) 20 MG tabletIndications:Pure hypercholesterolemia TAKE ONE TABLET BY MOUTH EVERY DAY 90 tablet 3 2024 Active hydroCHLOROthiazide 25 MG tabletIndications:Esse ntial hypertension TAKE ONE TABLET BY MOUTH EVERY DAY 90 tablet 3 2024 Active furosemide (LASIX) 20 MG tabletIndications:[place] a, unspecified type Take 1 tablet (20 mg total) by mouth daily. 10 tablet 2024 Active umeclidinium-vilantero L (ANORO ELLIPTA) 62.5-25 mcg/actuation diskus inhaler Inhale 1 puff into the lungs daily. 60 each 11 2024 Active levothyroxine (SYNTHROID, LEVOTHROID) 50 MCG tabletIndications:Hypo thyroidism TAKE ONE TABLET BY MOUTH EVERY DAY 90 tablet 3 2024 Active metoprolol tartrate (LOPRESSOR) 50 MG tabletIndications:Esse ntial hypertension TAKE ONE TABLET BY MOUTH TWICE A DAY 180 tablet 3 2024 Active ADMELOG SOLOSTAR U-100 INSULIN 100 unit/mL injection penIndications:Type 2 diabetes mellitus without complication, with long-term current use of insulin INJECT 14 UNITS UNDER THE SKIN 3 TIMES A DAY WITH MEALS. 45 mL 3 2024 Active losartan (COZAAR) 50 MG tabletIndications:Prim theodore hypertension TAKE ONE TABLET BY MOUTH TWICE A DAY 180 tablet 3 2024 Active CONTOUR Strp test stripsIndications:Type 2 diabetes mellitus without complication, with long-term current use of insulin TEST BLOOD SUGAR UP TO FOUR TIMES A DAY 400 strip 3 2024 Active insulin NPH (NOVOLIN N NPH U-100 INSULIN) 100 unit/mL injection vialIndications:Type 2 diabetes mellitus without complication, with long-term current use of insulin INJECT SUBCUTANEOUSLY 35 UNITS IN THE MORNING AND INJECT 20 UNITS IN THE EVENING ( DOSES SHOULD BE INJECTED EVERY 12 HOURS DX:E11.9 50 mL 3 04/21 Discontinued CONTOUR Strp test stripsIndications:Type 2 diabetes mellitus without complication, with long-term current use of insulin TEST BLOOD SUGAR UP TO 4 TIMES A DAY, 400 strip 3 08/28 Discontinued ADMELOG SOLOSTAR U-100 INSULIN 100 unit/mL injection penIndications:Type 2 diabetes mellitus without complication, with long-term current use of insulin Inject 14 Units under the skin 3 (three) times a day with meals. E11.9 45 mL 3 08/07 Discontinued losartan (COZAAR) 50 MG tabletIndications:Prim theodore hypertension take 1 tablet by mouth twice daily. 60 tablet 2 08/14 Discontinued metoprolol tartrate (LOPRESSOR) 50 MG tabletIndications:Esse ntial hypertension take one tablet by mouth twice a day 180 tablet 3 08/01 Discontinued lansoprazole (PREVACID) 30 MG capsule Take 1 capsule (30 mg total) by mouth daily. 30 capsule 11 08/10 famotidine (PEPCID) 40 MG tablet Take 1 tablet (40 mg total) by mouth daily. 30 tablet 11 08/10 Active Problems Problem Noted Date Diagnosed Date Chronic cough 07/14/2025 Pulmonary nodules 07/14/2025 Breast nodule 07/14/2025 Edema 03/28/2025 Assessment & Plan (03/28/2025 4:41 PM EDT): Significant rubor noted on both bilateral feet but 3+ pitting edema of the right leg different from the left leg persisting for 1 to 2 weeks. There is no overlying warmth or tenderness to palpation to the bilateral lower extremities. Likely in the setting of peripheral vascular disease, however cannot rule out DVT although less likely as she is on Plavix. Will obtain right duplex ultrasound for further assessment. Advised the patient to utilize compression socks and elevation for conservative management. If ultrasound negative, will consider short course of Lasix to aid in fluid reduction. Type 2 diabetes mellitus wit h diabetic mononeuropathy, with long-term current use of insulin 01/28/2025 Assessment & Plan (08/07/2025 1:12 PM EDT): aDnia continues on basal insulin since Soliqua is not covered and she is also consistent with premeal insulin, her control remains fair Unfortunately some medication options which would be helpful for CV and renal benefits are not affordable Dania has been consistent with premeal dosing of Admelog, since she is not taking a late evening dose of Admelog her tendency for lower patterns is likely due to basal insulin dosage, we discussed lowering this to 35u from her current 40u daily We discussed increasing the dose of Admelog at breakfast particularly if having cereal, we discussed that Dania's insulin requirement for this is likely higher than she is currently dosing, her mealtime doses for lunch and dinner appear to be adequate Neuropathy has been helped by gabapentin however Dania does not take it regularly, we discussed continuing a lower dose, 100mg, if this is sedating but advised to take 2 capsules (200mg) if looking for greater efficacy, Dania is assured she can be flexible with and can dose up to three times daily Dania will return to meet with me in 6 months; Dania is advised to keep in touch with me regarding any questions or concerns Assessment & Plan (04/11/2025 1:20 PM EDT): - Her A1c level today is 7.6%, a decrease from the previous reading of 8%. - The goal is to maintain her A1c around 7-8% to prevent hypoglycemia. - She will temporarily switch to Basaglar, maintaining a daily dose of 40 units. The Admelog dosage will be increased by 2 units from the usual mealtime dose. - Once the Basaglar supply is nearing depletion, she will inform us so that a prescription for Soliqua can be sent to the pharmacy. This seems to have been approved through December 2025, but Dania wishes to use up the glargine supply. If she requires more than 18 units of Admelog per meal and continues to experience hyperglycemia, she should contact us for further dosage adjustments. Encouraged efforts at balanced, mindful eating Encouraged efforts at increasing physical activity as tolerated Advised to contact office with any questions or concerns Orders: POCT Hemoglobin A1c Assessment & Plan (01/28/2025 10:32 PM EST): Dania continues on basal+GLP and bolus MDI with fair control, we spent much of this visit discussing alternatives to Soliqua as this is no longer covered by Dania's insurance company; the simplest transition would be to daily basal insulin and weekly GLP1 in addition to continuation of mealtime insulin, however weekly GLP1 therapy is covered at tier 5/5 which will be too expensive for Dania, we discussed basal bolus MDI and addition of SGLT2i therapy which will also provide CV and renal benefits, Dania is agreeable to try this however cost may prove a challenge Dania is strongly advised to not dose rapid acting insulin after eating if blood sugar is elevated without considering the duration of insulin action which we discussed today, I expect that evening doses of insulin after eating due to unexpected elevations tend to lead to overnight low glucose episodes Neuropathy is helped by gabapentin however the current dose causes sedation so Dania does not take it regularly, we discussed a lower dose, 100mg, which Dania is assured she can be flexible with and can dose up to three times daily We discussed cortisone injection impact on glucose control, this will affect mealtime glucose most and since Dania is on mealtime insulin she is advised that we can help her adjust this if she will need another cortisone shot in the future Dania will return to meet with Eunice Rutledge in 3 months and we will meet again in 6 months; Dania is advised to keep in touch with me regarding any questions as she begins Jardiance therapy Mucopurulent chronic bronchitis 10/26/2024 Assessment & Plan (10/26/2024 1:41 PM EST): Chronic lung disease stable, continue treatment as such, will continue to monitor lungs monitor treatment. Type 2 diabetes mellitus wit h both eyes affected by mild nonproliferative retinopathy without macular edema, with long-term current use of insulin 10/26/2024 Assessment & Plan (08/07/2025 1:04 PM EDT): Routine eye exam is up to date More optimal blood pressure and blood sugar control is likely to help reduce progression of diabetic eye disease Assessment & Plan (04/11/2025 1:20 PM EDT): Routine eye exam is up to date Importance for more optimal blood pressure and blood sugar control in order to help reduce progression of diabetic eye disease Assessment & Plan (01/28/2025 10:17 PM EST): Routine eye exam is up to date We discussed importance of more optimal blood pressure and blood sugar control in order to help reduce progression of diabetic eye disease Stable angina pectoris 10/26/2024 Leg cramping 10/26/2024 Assessment & Plan (10/26/2024 1:44 PM EST): Most likely either dehydration or potassium and magnesium related on hydrochlorothiazide. Will start Slow-Mag and obtain a Chem-7 and magnesium level. Chronic pain of right knee 06/21/2024 Assessment & Plan (06/21/2024 1:54 PM EDT): Obtain an x-ray of the knee and if severe degenerative changes referral to [facility] orthopedics. Avoidance of nonsteroidals given history of stroke. Essential hypertension 08/04/2023 Assessment & Plan (04/11/2025 1:20 PM EDT): Blood pressure is in good control today She continues on a regimen which includes ARB Assessment & Plan (10/26/2024 1:40 PM EST): Blood pressure fairly well-controlled with a systolic slightly elevated, will maintain current antihypertensives. We might consider reducing metoprolol depending on the EKG. Assessment & Plan (07/04/2024 5:49 PM EDT): Blood pressure is in good control today Dania had some adjustments to medications which have been effective She continues on a regimen which includes ARB She has a home blood pressure cuff and self monitors blood pressure Assessment & Plan (06/21/2024 1:51 PM EDT): She was shown the blood pressures at home about 30 or 40 readings and all of them were either close to normal limits or just slightly elevated. At this point we can maintain the antihypertensive as listed above with no changes. She denies any orthostasis. Check electrolytes and kidney function in the context of this visit. Assessment & Plan (03/31/2024 2:04 PM EDT): Elevated today. She was unaware she should be taking losartan BID. I reviewed this and printed a med list for her. Highlighting the HTN med's and reviewing how to take them. She agrees to take the losartan BID as Rx. I enc her to continue to track at home and bring us the readings- She will see PCP in May for routine f/u Assessment & Plan (01/01/2024 1:13 PM EST): BP is at desired range today Dania takes blood pressure readings at home Has been following closely with PCP regarding blood pressure control Current regimen includes ARB Most recent GFR 74 from April 2023 Assessment & Plan (10/07/2023 11:13 AM EST): The blood pressure is elevated but it would be dangerous to make an adjustment with just 1 number so I am having the patient go home and check blood pressure daily for the next 10 days to report back to us and then we will see what the average is. Certainly the metoprolol is allowing for good beta-blockade and could not be increased given her mild bradycardia today. The Cozaar perhaps could if needed. A blood pressure systolic of 140 could be tolerated given her age. Assessment & Plan (08/31/2023 1:17 PM EDT): BP is at top of desired range today Dania takes blood pressure readings at home Has been following closely with PCP regarding blood pressure control Current regimen includes ARB Most recent GFR 47 Chronic cough 08/04/2023 Assessment & Plan (03/31/2024 2:07 PM EDT): She has a chronic cough for more than 2 yr. Has a Fhx of lung CA and COPD. She is a non smoker, but desired to see pulm for a work up. Ref placed. She will call us by mid March if she has not heard form us about the refferral. She can try vicks vapo rub and lozenges for her cough if it is bothersome Assessment & Plan (08/04/2023 1:44 PM EDT): Chronic cough is been going on for about 2 years total but it seems to have been gotten worse over the past month or 2. With prior history of passive smoking, lets obtain a chest x-ray from the [facility]. My nursing staff will call her if it is negative I will call her if there is any issues. Her lungs were clear such that she does not need inhalers at this time. If she continues to have a lot of coughing and shortness of breath we will set up a repeat visit. Class 1 obesity 06/16/2023 06/16/2023 Assessment & Plan (08/07/2025 1:01 PM EDT): BMI ~31 Dania has had weight loss, ~17lbs, since spring; Dania does not report any significant changes in intake Encouraged to try to aim for healthy balanced eating and staying active as tolerated Assessment & Plan (07/04/2024 5:55 PM EDT): BMI ~33 Weight has been relatively stable with BMI in low 30s Encouraged to try to aim for healthy balanced eating and staying active as tolerated Dizziness and giddiness 05/12/2023 Assessment & Plan (05/25/2023 3:49 PM EDT): The dizziness was orthostasis related. She shows me blood pressures and blood sugars and there were no hypoglycemic events from what we could see, blood pressure is now stable moderately high but not enough to warrant treatment changes. We can maintain losartan, hydrochlorothiazide and metoprolol as is. Encouraged to continue water intake and she can stop the last drink of water around dinnertime for example for 5 PM. She has a follow-up with [facility] endocrinology which she will honor and then she is following up with us again in May. No changes to above-stated medications. Assessment & Plan (05/12/2023 4:46 PM EDT): On exam the only striking feature is the moderate bradycardia and also on the previous visit. Reduce metoprolol to 25 mg twice daily and consider switching to Toprol-XL 25 mg daily. Especially if this change causes improvement. With the dizziness and the fact that she is on HCTZ let us obtain a electrolyte panel with particular interest in sodium level. Lab is closed right now so she will come back or rather go to the [facility] in [place] with the order sheet. She will check her blood pressure 4 times a day and her blood sugars as she normally has. I do not think that the blood sugars were the cause of her dizziness because they were never too high nor were they too low and no other symptoms of hypoglycemia. Bilateral carotid artery stenosis 01/30/2023 Overview (01/30/2023): Mild, 12/2022 u/s Assessment & Plan (10/26/2024 1:41 PM EST): Review of the duplex ultrasound showing mild carotid stenosis, next year will repeat a duplex ultrasound if it is not repeated through specialist. B12 deficiency 10/21/2022 Assessment & Plan (01/01/2024 1:23 PM EST): Most recent vit B12 level on file is within desired range Assessment & Plan (10/07/2023 11:13 AM EST): For the past couple years we see the B12 ordered here and there but no lab was done. So we will get a B12 level today and advise her B12 supplementation. Encounter for annual wellness exam in Medicare p atient 10/21/2022 Menopausal state 10/21/2022 History of embolic stroke 10/21/2022 Assessment & Plan (10/21/2022 9:00 PM EST): Dania prefers to check carotid ultrasounds every few years. Test ordered. Hypoglycemia associated with diabetes 08/15/2022 Assessment & Plan (10/26/2024 1:43 PM EST): Recheck hemoglobin A1c, med adjustments, insulin adjustments through endocrinology. Assessment & Plan (07/04/2024 5:56 PM EDT): Hypoglycemia risk is sporadic based on CGM data, overall very low frequency of hypoglycemia over the past 2 weeks and this is likely due to proactive management based on CGM data Continues to benefit from consistent CGM use This patient has diabetes This patient has been using a blood glucose meter and performing 4 or more blood glucose readings daily or is now using CGM This patient is insulin-treated with 3 or more daily injections OR a continuous subcutaneous insulin infusion pump This patient's insulin treatment regimen requires frequent adjustment by the patient on the basis of blood glucose meter readings or continuous glucose monitoring results This patient has had an in-person visit with the treating provider to evaluate diabetes control and determine criteria for CGM use This patient will return for follow up visits at least every 6 months to assess adherence to CGM regimen, the effect of the current diabetes treatment regimen and to have insulin and medication therapy adjusted as needed for optimal outcome Assessment & Plan (01/01/2024 1:20 PM EST): Hypoglycemia risk is sporadic based on CGM data, overall very low frequency of hypoglycemia over the past 2 weeks and this is likely due to proactive management based on CGM data Continues to benefit from consistent CGM use Assessment & Plan (04/21/2023 9:21 PM EDT): Hypoglycemia risk is sporadic based on CGM data, overall very low frequency of hypoglycemia over the past 2 weeks Continues to benefit from consistent CGM use Basal-Bolus MDI should provide more even coverage with less risk of lows Assessment & Plan (12/15/2022 5:27 PM EST): Hypoglycemia risk is sporadic based on CGM data, overall very low frequency of hypoglycemia over the past 2 weeks Continues to benefit from consistent CGM use Assessment & Plan (08/15/2022 11:31 AM EDT): Increase in overnight lows as noted above Would benefit from CGM use Right tennis elbow 07/12/2021 Assessment & Plan (07/12/2021 1:36 PM EDT): Epicondylitis lateral most certainly the diagnosis, she does not really demonstrate overt signs of enthesopathy though probably at her age there is some underlying tendon tightening that is at play here. Discussed the condition with the patient, recommended a tennis elbow brace and apply the air cushion in the vicinity of the area that is troubling her to alleviate the tendon. Ice packs better than heat 20 minutes on 10 minutes off. Because patient on Plavix patient strongly advised not to take any ibuprofen but we do advise OTC diclofenac gel 2 to 4 g 3 times daily to the right elbow joint that would be safe in my opinion. Tylenol p.o. if needed. Sparing of the elbow joint by decreasing use. Candidal skin infection 07/05/2021 Assessment & Plan (07/05/2021 8:29 PM EDT): Continues with intertrigo, previously treated with nystatin cream per PCP, this was refilled for Dania today and she is encouraged to resume use of antifungal and to follow up with PCP if this is not improving We discussed likely improvement in healing with improvement in blood sugar control Bradycardia 01/13/2020 Assessment & Plan (10/26/2024 1:45 PM EST): Bradycardia will obtain EKG today and if there is any signs of AV block even grade 1 will discontinue the metoprolol and refer patient to cardiology. Please see EKG findings EKG findings: EKG showing sinus bradycardia with left precordial repolarization disturbance, otherwise normal, no ischemic changes. QTc is 437 ms and LA is 128 within normal range. There is a low threshold to dial back the metoprolol if she becomes symptomatic but for right now we can maintain things as is. Gastroesophageal reflux disease without esophagi tis 01/13/2020 Pain of both breasts 08/22/2019 Assessment & Plan (08/22/2019 6:49 AM EDT): Suggested supportive bra without underwire. Limit caffeine intake for 2-3 weeks (try one pot of half-caf coffee to limit withdrawal, then reduce from there). If still bothersome will consider alternate supplement or treatment. Mammogram UTD. Hypertension 08/18/2019 Assessment & Plan (08/07/2025 12:55 PM EDT): Blood pressure has been borderline in the recent past, remains bradycardic Current regimen includes ARB Assessment & Plan (01/28/2025 10:14 PM EST): Blood pressure has been elevated in the recent past, pulse low Current regimen includes ARB Assessment & Plan (08/04/2023 1:43 PM EDT): Blood pressure is looking much better on the current regimen so we can maintain the Cozaar and Toprol-XL as they are. We will follow-up again in September just to be sure. Assessment & Plan (07/02/2023 5:00 PM EDT): BP elevated today Dania reports taking blood pressures at home, but cannot recall these Has been following closely with PCP regarding blood pressure control Current regimen includes ARB Assessment & Plan (06/16/2023 3:29 PM EDT): Met with PCP recently regarding antihypertensive therapy Blood pressure is moderately elevated, pulse low Not feeling dizzy since hosp stay in late April Advised to discuss increase in edema with PCP, continues on HCTZ Current regimen includes ARB Assessment & Plan (06/12/2023 11:48 AM EDT): There is a need to simplify the antihypertensives. Also evening pulse was low according to the . Lets switch her over to Toprol-XL 50 mg every morning. If she can monitor her blood pressure in the morning and at night I gave her the parameters of calling the office if it is greater than 150/100 mmHg. The losartan will be reduced to 50 mg daily. Previously it was 50 mg in the morning and quarter tablet at night. Then we will follow-up in 7 weeks. This will give us also time to assess how any changes that [facility] endocrinology make, we can see how she is benefiting using her continuous glucose monitoring. Assessment & Plan (04/21/2023 8:39 PM EDT): Well controlled on present regimen which includes ARB Encouraged heart healthy, low sodium diet Assessment & Plan (12/15/2022 5:28 PM EST): Continues on regimen which includes ARB Blood pressure is elevated today, historically in good control but more recently variable Assessment & Plan (08/15/2022 11:17 AM EDT): Continues on regimen which includes ARB Blood pressure is elevated today, historically in good control Assessment & Plan (02/07/2022 11:33 AM EST): Continues on regimen which includes ARB Blood pressure is in good control today Assessment & Plan (07/05/2021 8:33 PM EDT): Continues on regimen which includes ARB Blood pressure is in good control today Assessment & Plan (02/22/2021 2:53 PM EDT): Continues on regimen which includes ARB Blood pressure is in good control today Assessment & Plan (12/25/2020 6:18 PM EST): Continues on regimen which includes ARB Blood pressure is in good control today Assessment & Plan (09/20/2020 2:04 PM EDT): Continues on regimen which includes ARB Blood pressure is at upper end of desired range today Assessment & Plan (08/22/2019 6:47 AM EDT): Continue medication regimen as prescribed. Cervical spondylitis with radiculitis 07/12/2019 Type 2 diabetes mellitus wit hout complication, with long-term current use of insulin 07/12/2019 Assessment & Plan (07/04/2024 5:53 PM EDT): Dania has continued on basal bolus MDI using Soliqua which also provides GLP1ra therapy, her CGM patterns are generally reassuring with some variable prandial rise Dania is appropriately adjusting her mealtime insulin based on what she is eating and is encouraged to continue this We discussed that she could keep a log of meals which cause more significant spikes in glucose to discuss this with Savanna Cui at the next visit, there are likely strategies that Dania and her can utilize in mealplanning to reduce the occurrence of this Dania is advised to try to aim for healthy balanced eating in general and to continue to try to be as active as she is able given her limitations Dania will return to meet with Savanna Cui in July and with me in 6 months, she is advised to call with any questions or concerns Assessment & Plan (06/21/2024 1:53 PM EDT): Patient being reassessed in June, most recent A1c down approximately 1% from previous, patient commended for efforts and to continue with antidiabetics. Continue dietary discretion. Assessment & Plan (01/01/2024 1:22 PM EST): Dania has continued on basal bolus MDI using Soliqua which also provides GLP1ra therapy, overnight readings are stable at target range most of the time, there is variable prandial rise which seems most significant after morning meal when having cereal Dania has been using a fixed dose of Fiasp prior to all meals, 16u, this seems suboptimal for some meals so we discussed considerations for adjusting this for some meals compared to others, we also discussed taking less insulin for morning meal when having eggs or other low carb options, Dania appears to require less insulin for her midday meal and is advised to adjust this to reduce risk for hypoglycemia later in the day Dania will return to meet with Ariana Abbasi in March and with me in 6 months, she is advised to call with any questions or concerns Assessment & Plan (10/07/2023 11:15 AM EST): Counseled the patient on diabetic diet, A1c on next visit. Continue to follow the advice and prescriptions of [facility] endocrinology. Will repeat hemoglobin A1c next visit Assessment & Plan (08/31/2023 1:24 PM EDT): Dania has continued on basal bolus MDI using Soliqua which also provides GLP1ra therapy, overnight readings are stable at target range most of the time, we did not adjust this today Dania has been using a fixed dose of Fiasp prior to all meals, 16u, this seems suboptimal alicja in the latter part of the day most of the time indicating a need for more prandial insulin for most meals, Dania is advised to increase this to 18 units if having a larger meal or if eating out of the house, she will continue 16u for meals early in the day and smaller evening meals Dania will return to meet with Ariana Abbasi on 09/11 and with me in 4 months, she is advised to call with any questions or concerns Assessment & Plan (08/04/2023 1:45 PM EDT): Before the next September visit about the patient going for microalbumin and hemoglobin A1c. She should be mindful of diet and we will see if medication changes are needed. Assessment & Plan (07/02/2023 4:58 PM EDT): Dania has been on basal bolus MDI using Soliqua which also provides GLP1ra therapy since March, we revisited this regimen as it compares to Dania's previous NPH/Reg MDI regimen, she is concerned about elevated glucose patterns and we discussed the need for further optimized doses of her current insulins We discussed an increase of Soliqua to 39 units once daily in the morning and advised continuing Fiasp at the current dose of 14 units prior to all meals We will check in with Dania on insulin adjustments in 1-2 weeks, but she is encouraged to contact me sooner with any questions or concerns. Dania has follow up scheduled with Ariana Abbasi and with Dr. Montero in 2 months Assessment & Plan (06/16/2023 3:40 PM EDT): Dania has been on basal bolus MDI using Soliqua which also provides GLP1ra therapy since March, we discussed this regimen as it compares to Dania's previous NPH/Reg MDI regimen, she is concerned about elevated glucose patterns and we discussed the need for optimized doses of her current insulins which are still at doses started in late March since Dania did not return for follow up We discussed an increase of Soliqua to 34 units once daily in the morning and an increase in premeal Fiasp to 10 units prior to all meals Dania is advised to stop in to have FSL reader downloaded so that we can assess efficacy of her current doses Continues on Gabapentin 100mg daily and 300mg prn in evening, DPN symptoms are likely to improve also with more stable glucose patterns Encouraged to contact me with any questions or concerns, Dania has follow up scheduled with Ariana Abbasi and with me in 3 months Assessment & Plan (04/21/2023 9:19 PM EDT): Dania's A1c has improved to 7%, although her 14 day CGM data reflects a GMI of 8.1 with average sugar of 202. It has been sometimes challenging to remember exact dosing of Novolin N versus Novolin R. Under the Inflation Reduction Act, Dania qualifies for $35 monthly insulin. She would like to simplify her diabetic regimen and return to basal insulin. Basal - Bolus MDI will ultimately provide more steady and target control over her sugars with decreased risk of lows. Dania tolerated Victoza prior to switching to NPH. We discussed the risks, side effects, and benefits of Soliqua combined GLP1ra - basal insulin. Dania is agreeable with 30u initiated and a plan to gradually increase to target per recommended protocol. Additionally she will still likely need a smaller dose of bolus coverage with meals since she was on 20u Novolin R with meals. Dania generally does not wait to inject her insulin much before starting to eat. We discussed the ultra rapid action of Fiasp with its benefits, risks, and side effects. Dania is agreeable and initiated 6u tid with meals. Emphasized verbally and provided handwritten (as well as printed) instructions on the importance of waiting no longer than 5 minutes from injecting this insulin to eating her meal. Explained that we can gradually increase as necessary, but the GLP1ra will lessen the mealtime insulin requirement. Additionally we discussed placing a rubber band around her Soliqua pen (with band provided) to distinguish it from Fiasp and remind her it is only injected once in the morning. We will adjust her insulin gradually as necessary per protocol. Dania is aware to discontinue Novolin N and R prior to starting Soliqua and Fiasp. Reviewed hypoglycemia prevention, recognition and management. Encouraged to continue to make healthy diet choices and remain as physically active as tolerates. Encouraged to contact us with any concerns or questions and follow up in 2 weeks. Assessment & Plan (12/15/2022 5:38 PM EST): Dania continues on NPH and Reg insulin regimen, taking NPH bid and Reg TID, she was previously on basal bolus MDI but could not afford this We discussed dosing today and she could not remember how much she took so called up from home after our visit, confirmed that she takes 42uN,25uR with breakfast, 25uN,15uR with dinner, 12uR with lunch, based on CGM data Dania was advised to take 50uN,25uR in am, 20uN,15uR in pm and continue lunch time dose, we will check in with her in a week or so to see how she is doing Having neuropathy pain in [place] feet, prescribed Gabapentin but not taking consistently due to imbalance; advised to take evening dose Gabapentin 300mg consistently, this should help her symptoms overnight, if pain occurs during the day then ok to take 100mg prn DPN symptoms should hopefully improve also with more stable glucose patterns Advised to continue to ambulate with cane, imbalance continues despite PT, we discussed that this may be due to deficits from CVA and also impact from peripheral neuropathy Encouraged to contact me with any questions or concerns, we will be in touch with Dania to discuss changes made today, Dania has follow up scheduled with Ariana Abbasi in 3 months and we will follow up in 6 months Assessment & Plan (10/31/2022 9:19 AM EST): Dania has continued on NPH and regular insulin due to cost, she takes both bid with morning and evening meals We had discussed lowering the evening dose at our last visit however Dania did not do this, she continues on NPH 35u bid and R insulin per sliding scale (4-10 units), there has been some concern for confusion around dosing and variability in dosing, has stated that he is with Dania when she injects her insulin and he feels that she is doing a good job with this Advised to increase morning NPH to 42 units and decrease evening NPH to 25 units, will continue current doses of mealtime insulin for now We will reach out to Dania to see how these doses are working for her and adjust further as needed Dania has been advised to contact us with any questions or concerns Assessment & Plan (10/21/2022 8:59 PM EST): Continues to have difficulty managing blood sugars. She is managing hypoglycemic episodes well. Will CC Dr. Montero on today's visit. Assessment & Plan (08/15/2022 11:29 AM EDT): Dania is having increase in low blood sugar events overnight likely due to overaggressive NPH dosing in evening We adjusted evening NPH dose today and kept Reg insulin dosing modest for now, this may require adjustment to optimize control but for now we will focus on eliminating hypoglycemia overnight and allowing Dania to feel reassured to sleep through the night We will work on FSL prescription through [facility] since rx to pharmacy was not effective, using CGM would be very helpful to Dania due to her risk for hypoglycemia based on her insulin preparation We discussed analog insulins and how they differ from older human insulins in onset of action and duration of action, this regimen is more cost effective for her Dania is encouraged to continue to self monitor blood sugars frequently until she gets her CGM and to contact us with any questions or concderns, she has upcoming appt with Ariana Abbasi on 08/25 and we will follow up in 4 months Assessment & Plan (02/07/2022 11:37 AM EST): A1c may be reflective of not taking Metformin in the recent past, we discussed the safety and efficacy of Metformin, Dania is encouraged to continue this consistently We reviewed current insulin dosing, Dania is taking higher doses than recommended based on her last CGM data in October, she is advised to continue her current doses for now and we will repeat CGM pro to evaluate her patterns and suggest adjustments as needed We discussed the most appropriate dosing of N and R insulins, advised to take N more consistently twice daily but to only take R when eating and preferably prior to eating rather than after We will be in touch with Dania regarding CGM pro eval in 2 weeks, she has upcoming appt with Ariana Abbasi in March and we will follow up in 6 months CGM Trial Type of Diabetes: type 2 diabetes mellitus with renal manifestations, uncontrolled Procedures: Glucose Monitoring: Type of Sensor: Nikita Pro Instruction: Patient Instructed on: 02/07/22, Calibrations, When to test BS, Troubleshooting, What to expect with the sensor, Patient instructed to remove sensor if redness, pain or bleeding occurs. . Insertion Site Selected: back of left arm Site Prep: Insertion site wiped with alcohol. Insertion: completed, area looks good, no redness, no bleeding. Plan: Patient will remove sensor and return in 2 weeks on 02/21/22 to drop off at front office coordinator or follow up appointment. Assessment & Plan (10/04/2021 1:54 PM EDT): CGM Trial Type of Diabetes: Diabetes mellitus Type 2 Assessment/HPI: Dania is here today for CGM trial. Procedures: Glucose Monitoring: Type of Sensor: Nikita Pro, Instruction: Patient Instructed on:, Calibrations, When to test BS, Troubleshooting, What to expect with the sensor, Patient instructed to remove sensor if redness, pain or bleeding occurs. . Insertion Site Selected: arms, left Site Prep: Insertion site wiped with alcohol. Insertion: completed, area looks good, no redness, no bleeding. Plan: Procedure Codes: 97057 Glucose monitoring, cont Patient was provided bag and instructions to remove sensor and drop off at desk in 2 weeks Assessment & Plan (07/05/2021 8:42 PM EDT): Control is suboptimal and variable on current regimen of NPH and Regular insulin We adjusted doses today to help optimize control and to also help make dosing more convenient for Dania, she will take N and R twice daily prior to morning and evening meals, with higher N dosage in morning she is likely to not need R at midday Dania will continue current sliding scale, we will adjust this as needed to optimize glucose control Dania is encouraged to continue to self monitor blood sugars frequently and to contact us with any questions or concderns Assessment & Plan (02/22/2021 2:57 PM EDT): Improved glucose control since resuming Victoza, we discussed optimizing this to 1.2mg daily, advised to watch for worsening upper GI symptoms Advised to reduce evening dose of Basaglar to reduce risk of lows overnight My goal is still to transition Dania to once daily Xultophy if her insulin requirement and Victoza tolerability will allow this Encouraged to continue healthy eating and to stay active as consistently as she can Has upcoming appt with Ariana Abbasi in 2 months, she will return to follow up with me in 4 months, encouraged to call with any questions or concerns Assessment & Plan (12/25/2020 6:19 PM EST): Generally suboptimal control on current basal insulin and metformin therapy We discussed adjustments to current therapy to allow for improved prandial control Previously on Victoza with good effect, had to stop due to cost Combination basal inslin + victoza product is covered by insurance and we discussed the likely cost savings in bundling these to medications into one combination product Initially Dania will start low dose Victoza and continue Basaglar we adjusted her basal insulin dose lower in evening to reduce risk of hypoglycemia; we reviewed Victoza dosing with a demo pen As Dania is able to tolerate higher doses of Victoza we will transition to Xultophy once daily The other option would be MDI with basal and bolus insulins, Dania is less enthused by this option due to frequent injections We will follow up with Dania later this week and adjust doses as needed Assessment & Plan (09/20/2020 2:10 PM EDT): GFR normal and recent urine microalbumin negative Continues on ARB for HTN Recent issues with medication cost, this is likely related to choice of pharmacy and/or monthly prescription amount rather than the more preferable 90 day supply, Dania has been off GLP1ra therapy for several weeks and has noted a higher insulin requirement as a result We also discussed combination basal insulin + GLP1ra options that would take the place of separate products and may also provide cost benefit Hemal forwarded to [facility] pharmacy, Dania is encouraged to call today regarding status of this and if there is any issue with cost to let me know and we will discuss alternatives Dania will return to meet with Leonor Hernandez in 6 weeks and with me in 3 months, we will be in touch regarding dosing adjustments as needed between visits and Dania is encouraged to call with questions or concerns Assessment & Plan (08/22/2019 6:47 AM EDT): Continue medications as prescribed. Sending Victoza to pharmacy; pt aware that we will need to monitor closely with any transition from short-acting insulin. Await pharmacy/coverage approval and then will plan dosing/treatment plan. If unable to transition due to coverage/cost will let office know. Will schedule OV to discuss new med regimen. DDD (degenerative disc disease), lumbar 07/12/20 19 Hemiparesis affecting domina nt side as late effect of cerebrovascular accident 07/12/2019 Assessment & Plan (06/21/2024 1:53 PM EDT): With her history of of stroke would like her to remain on the Plavix indefinitely. As such she cannot be on nonsteroidals but also as that would put her at risk for heart attack or stroke. PFO (patent foramen ovale) 07/12/2019 Hip pain 07/12/2019 Trochanteric bursitis 07/12/2019 Lower back pain 07/12/2019 Assessment & Plan (10/26/2024 1:41 PM EST): Chronic lower back pain occasional Percocet okay we will continue to monitor use of the Percocet at least twice a year. Tubular adenoma of colon 07/12/2019 Overview (07/12/2019): Colonoscopy q5yrs: 04/30/15 Dr. Klein, 11/15/10 Pure hypercholesterolemia 07/12/2019 Assessment & Plan (08/07/2025 1:02 PM EDT): Most recent lipid panel reviewed, LDL is very near optimal goal, goal is <55 given CVA history Continues on moderate intensity statin therapy Encouraged to continue healthy diet Assessment & Plan (01/28/2025 10:15 PM EST): Most recent lipid panel reviewed, LDL is very near optimal goal Continues on moderate intensity statin therapy Encouraged to continue healthy diet Assessment & Plan (07/04/2024 5:50 PM EDT): Most recent lipid panel reviewed, LDL is very near goal Continues on moderate intensity statin therapy Encouraged to continue healthy diet Assessment & Plan (06/21/2024 1:52 PM EDT): With history of stroke patient on statin therapy, check lipid profile and liver enzymes, continue Zocor and adjust according to LDL goal. Assessment & Plan (01/01/2024 1:19 PM EST): Most recent lipid panel reviewed, LDL is at goal Continues on moderate intensity statin therapy Assessment & Plan (08/31/2023 1:17 PM EDT): Most recent lipid panel reviewed, LDL is at goal Continues on moderate intensity statin therapy Assessment & Plan (07/02/2023 5:00 PM EDT): Most recent lipid panel reviewed, LDL is at goal Continues on moderate intensity statin therapy Assessment & Plan (06/16/2023 3:30 PM EDT): Most recent lipid panel reviewed, LDL is at goal Continues on moderate intensity statin therapy Assessment & Plan (04/21/2023 9:20 PM EDT): No recent lipid panel available for review, has routine lab order on file Continues on moderate intensity statin therapy Assessment & Plan (12/15/2022 5:29 PM EST): No recent lipid panel available for review, has routine lab order on file Continues on moderate intensity statin therapy Assessment & Plan (08/15/2022 11:22 AM EDT): No recent lipid panel available for review Continues on moderate intensity statin therapy Assessment & Plan (02/07/2022 11:38 AM EST): No recent lipid panel available for review Continues on moderate intensity statin therapy Assessment & Plan (07/05/2021 8:32 PM EDT): Continues on moderate intensity statin therapy Assessment & Plan (02/22/2021 2:53 PM EDT): LDL at target in the past, no recent labs available for review Continues on moderate intensity statin therapy Assessment & Plan (12/25/2020 6:13 PM EST): LDL at target in the past, no recent labs available for review Continues on moderate intensity statin therapy Assessment & Plan (09/20/2020 2:04 PM EDT): Continues on moderate intensity statin therapy No recent lipid panel on file available for review Microalbuminuria 07/12/2019 Hypothyroidism 07/12/2019 Assessment & Plan (08/07/2025 1:03 PM EDT): Continues on LT4 at modest dose Most recent TSH reviewed, this is in desired range Assessment & Plan (01/28/2025 10:14 PM EST): Continues on LT4 at modest dose Most recent TSH reviewed, this is in desired range Assessment & Plan (10/26/2024 1:42 PM EST): Recheck TSH today and adjust levothyroxine if need be. Assessment & Plan (07/04/2024 5:54 PM EDT): Continues on LT4 at modest dose Most recent TSH reviewed, this is in desired range Assessment & Plan (06/21/2024 1:52 PM EDT): No overt signs of hypothyroidism, check TSH free T4 and adjust Levoxyl if need be. Assessment & Plan (01/01/2024 1:15 PM EST): Continues on LT4 at modest dose Most recent TSH was in desired range Assessment & Plan (10/07/2023 11:14 AM EST): Patient continuing on Synthroid, obtain a TSH and will adjust the Synthroid accordingly if needed. Assessment & Plan (08/31/2023 1:19 PM EDT): Continues on LT4 at modest dose No recent TFTs on file Assessment & Plan (06/16/2023 3:34 PM EDT): Continues on LT4 at modest dose No recent TFTs on file Assessment & Plan (04/21/2023 9:22 PM EDT): Continues on LT4 at modest dose Most recent TFTs available for review are from 2019, has updated lab order pending on file Assessment & Plan (12/15/2022 5:28 PM EST): Continues on LT4 at modest dose Most recent TFTs available for review are from 2019, has updated lab order pending on file Assessment & Plan (08/15/2022 11:30 AM EDT): Continues on LT4 at modest dose Most recent TFTs available for review are from 2019 Assessment & Plan (02/07/2022 11:39 AM EST): Continues on LT4 at modest dose Most recent TFTs available for review are from 2019, she has updated orders on file and upcoming visit with PCP Assessment & Plan (09/20/2020 2:02 PM EDT): Most recent blood work reviewed, TSH in desired range Clinically euthyroid Continues on LT4 at modest dose Cerebrovascular accident (CVA) 11/30/2011 Overview (10/07/2023): [facility] 2014 left gangliocapsular and thalamic infarct with little residual Resolved Problems Problem Noted Date Diagnosed Date Resolved Date Aneurysm of carotid artery 10/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 1 12/26/2023 Encounters Date Type Department Care Team Description 08/26/2025 Refill [facility] [address] [place] [address] Eunice Rutledge CNP Medication Refill 08/11/2025 Refill [facility] [address] [place] [address] Deonte Callejas MD Medication Refill 08/07/2025 10:20 AM EDT Office Visit [facility] [address] [place] [address] Rylee Montero MD Type 2 diabetes mellitus with both eyes affected by mild nonproliferative retinopathy without macular edema, with long-term current use of insulin (Primary Dx); Type 2 diabetes mellitus with diabetic mononeuropathy, with long-term current use of insulin; Pure hypercholesterolemia; Other specified hypothyroidism; Class 1 obesity; Primary hypertension 08/07/2025 Telephone [facility] [address] [place] [address] Rylee Montero MD 08/06/[address] [place] [address] Rylee Montero MD Medication Refill 07/29/2025 Refill [facility] [address] [place] [address] Deonte Callejas MD Medication Refill 07/07/2025 Telephone [facility] [address] [place] [address] Mally Wynn MD 07/05/2025 Refill [facility] [address] [place] [address] Deonte Callejas MD Medication Refill 07/05/2025 Orders Only [facility] [address] [place] [address] Josefina Tomas MD 06/29/2025 Orders Only [facility] [address] [place] [address] Josefina Tomas MD 06/29/2025 Ancillary Orders [facility] [address] [place] [address] Unknown, Unknown, 06/29/2025 Ancillary Orders [facility] [address] [place] [address] Unknown, Unknown, MD 06/29/2025 Ancillary Orders [facility] [address] [place] [address] Unknown, Unknown, 06/26/2025 Telephone [facility] Medicine [address] [place] [address] Deonte Callejas MD mammogram order 06/23/2025 11:00 AM EDT Office Visit [facility] [address] [place] [address] Bishop Adams MD Chronic cough (Primary Dx); Mucopurulent chronic bronchitis; Pulmonary nodules; Breast nodule 06/01/2025 3:10 PM EDT - 06/01/2025 11:59 PM EDT Hospital Encounter [facility], Ct Scan [address] [address] Bishop Adams MD Discharge Disposition: Home or Self Care 12/12/2024 Procedure Pass [facility] Ct Scan [address] [address] from Last 3 Months Immunizations Immunization Administration Dates Next Due COVID-19 (Pre-09/21) Moderna Vaccine, mRNA, PF 02/09/2021,01/12/2021 INFLUENZA, SPLIT VIRUS, TRIVALENT PF 09/18/2021, 08/01/2019 Influenza High-Dose Quadriva lent Preservative Free IM 10/15/2022,09/23/2021,09/18/2020 Influenza High-Dose Trivalen t Preservative Free IM 08/18/2019,08/05/2018,08/04/2017 Pneumococcal conjugate PCV13 12/19/2016 Pneumococcal polysaccharide PPSV23 06/11/2020 Family History Medical History Relation Comments Liver cancer Brother 1 agent orange exp osure Lung cancer Brother 2 Prostate cancer Brother 2 Prostate cancer Brother 3 COPD Father hvt tob use Breast cancer Maternal Aunt Liver cancer Maternal Cousin Pneumonia Maternal Grandfather Heart attack Maternal Grandmother Alzheimer's disease Mother COPD Mother hvy tob use Cervical cancer Niece Heart attack Paternal Grandfather Arthritis Paternal Grandmother Breast cancer Sister 1 Breast cancer Sister 2 Lung cancer Sister 3 age 72 at Lung cancer Sister 4 non smoker Diabetes Son Heart failure Son Leukemia Unspecified Relation Status Comments Brother 1 (Age 69) Brother 2 Alive Brother 3 Alive Child Alive Daughter Alive Father Maternal Aunt Maternal Cousin Maternal Grandfather Maternal Grandmother Mother (Age 92) Niece Paternal Grandfather Paternal Grandmother Sister 1 (Age 78) Sister 2 Alive Sister 3 Sister 4 Alive Sister 5 Alive Son Alive Unspecified Social History Tobacco Use Types Packs/Day Years Used Date Smoking Tobacco: Never Passive Smoke Exposure: Past Smokeless Tobacco: Never Tobacco Cessation:Counseling Given: Not Answered Alcohol Use Standard Drinks/Week Comments Not Currently [...] Orientation Straight 05/25/2023 2: 55 PM EDT Last Filed Vital Signs Vital Sign Reading Time Taken Comments Blood Pressure 136/72 08/07/2025 10:22 AM EDT Pulse 45 08/07/2025 10:22 AM EDT Temperature 36.6 C (97.8 F) 06/23/2025 10:30 AM EDT Respiratory Rate 16 05/10/2025 2:10 PM EDT Oxygen Saturation 98% 08/07/2025 10: 22 AM EDT Inhaled Oxygen Concentration - - Weight 82.5 kg (181 lb 12.8 oz) 025 10:22 AM EDT Height 162.6 cm (5' 4.02 ) 08/07/2025 1 0:22 AM EDT Body Mass Index 31.19 08/07/2025 10:22 AM EDT Plan of Treatment Upcoming Encounters Date Type Department Care Team (Late st Contact Info) Description 11/10/2025 1:00 PM EST Office Visit [facility] Internal Medicine [address] [place] [address] Deonte Callejas MD [address] [place] [address] 12/25/2025 9:30 AM EST Office Visit [facility] Pulmonary, Allergy and Critical Care Medicine [address] [place] [address] Bishop Adams MD [address] [place] [address] 02/19/2026 10:00 AM EDT Office Visit [facility] [address] [place] [address] Rylee Montero MD 22 [facility], 1st [place] [address] Health Maintenance Due Date Last Done Comments Adult Td,Tdap Booster 1950 ZOSTER VACCINES (1 of 2) 1999 RSV VACCINE (1 - 1-dose 75+ series) 2024 DIABETIC EYE EXAM 03/09/2024 03/09/2023, , 02/26/2021, Additional history exists INFLUENZA VACCINE (#1) 2025 , 10/15/2022, 09/23/2021, Additional history exists COVID-19 VACCINE ( season) 2025 02/09/2021, 01/12/2021 DEPRESSION SCREENING 10/26/2025 10/26/2024, 10/07/20 TSH LEVEL 10/26/2025 10/26/2024, 05/31, 10/07/2023, Additional history exists BLOOD PRESSURE 02/04/2026 08/07/2025 HEMOGLOBIN A1C 02/04/2026 08/07/2025, 05/01/2025, 01/27/2025, Additional history exists CREATININE LEVEL 05/10/2026 05/10/2025, , 06/21/2024, Additional history exists LIPID PANEL 05/10/2026 05/10/2025, 05/31, 05/19/2023, Additional history exists POTASSIUM LEVEL 05/10/2026 05/10/2025, 10/01, 06/21/2024, Additional history exists PNEUMOCOCCAL VACCINES (50+ years) Completed 06/11/2020, 12/19/2016 OSTEOPOROSIS SCREENING INITIAL (ONE-TIME) Completed 10/15/2022 HEPATITIS C SCREENING Completed 06/21/2024 SMOKING STATUS SCREENING (Once After 26 Yrs) Completed 08/07/2025 HEPATITIS A VACCINES Aged Out No long er eligible based on patient's age to complete this topic HIB VACCINES Aged Out No longer eligi ble based on patient's age to complete this topic MENINGOCOCCAL VACCINES (ACWY) Aged Out No longer eligible based on patient's age to complete this topic MENINGOCOCCAL VACCINES (B) Aged Out N o longer eligible based on patient's age to complete this topic Medical Devices Not on file Procedures Procedure Name Priority Date/Time Associated Diagnosis Comments POCT HEMOGLOBIN A1C Routine 08/07/2025 10:41 AM EDT Type 2 diabetes mellitus with both eyes affected by mild nonproliferative retinopathy without macular edema, with long-term current use of insulin OUTSIDE IMAGING Routine 07/04/2025 10:05 AM EDT OUTSIDE XR EXTREMITY LOWER REPORT ONLY Routine 06/29/2025 4:49 PM EDT BI US BREAST (RIGHT) Routine 06/28/2025 12:56 PM EDT Mass of upper outer quadrant of right breast BI MAMMOGRAM DIAGNOSTIC (BILATERAL) Routine 06/28/2025 12:56 PM EDT Mass of upper outer quadrant of right breast CT CHEST WITHOUT CONTRAST Routine 06/01/2025 3:22 PM EDT Persistent cough LIPID PANEL Routine 05/10/2025 3:01 PM EDT Pure hypercholesterolemia BASIC METABOLIC PANEL Routine 05/10/2025 3:01 PM EDT Pure hypercholesterolemia TSH WITH REFLEX Routine 10/26/2024 2:00 PM EST Other specified hypothyroidism HEPATITIS C ANTIBODY, QUALITATIVE Routine 06/21/2024 1:57 PM EDT Need for hepatitis C screening test HM DIABETES EYE EXAM FOR RESULT ENTRY ONLY Routine 03/09/2023 BD DXA SCREENING Routine 10/15/2022 3:13 PM EST Menopausal state from Last 3 Months or Most Recently Relevant to Health Maintenance Results * (ABNORMAL) POCT Hemoglobin A1c (08/07/2025 10:41 AM EDT) Hemoglobin A1c 7.6(A) 4.2 - 5.6 % [employer] [facility] Other 08/07/2025 10:4 1 AM EDT us Rylee Montero MD POINT OF CARE TEST ORDERABLES F inal Result [employer] [address] [place] [address], [facility] * Outside Imaging Report Only (07/04/2025 10:05 AM EDT) us Historical Provider MD [place] XR CHEST Final Res ult * Outside XR Extremity Lower Report Only (06/29/2025 4:49 PM EDT) us Historical Provider MD [place] XR LOWER EXTREMITY Fi nal Result * CT CHEST WITHOUT CONTRAST (06/01/2025 3:22 PM EDT) MGB TONIA RECOMMENDATION COMMENT scattered sub 5 mm lung nodules; 1.9 cm nodule right outer breast [facility] Anatomical Region Laterality Modality Chest Computed Tomogra phy 06/06/2025 8:29 AM EDT Addenda Addendum by Bailey Higgins MD on 07/10/2025 2:30 PM EDT ADDENDUM: This addendum has been created to provide comparison assessment with a mammogram of the right breast from July 21, 2022, regarding the impression number 2. The 1.9 cm nodule in the right outer breast was seen on prior mammogram with a similar size. Given long-term stability, it most likely represents a benign lesion. The Radiologist Diagnostic Certainty Scale is a guide that conveys to patients and providers a radiologist's subjective diagnostic confidence: Most likely means very high probability Likely means high probability May represent means intermediate probability Unlikely means low probability Very unlikely means very low probability You can find out more about our efforts to improve the clarity of radiology reports for our patients and providers by visiting [email or web address] Impressions 06/06/2025 8:36 AM EDT Compared to November 14, 2024: 1. Similar scattered sub-5 mm lung nodules. 2. 1.9 cm nodule in the right outer breast. Recommend a mammogram for further assessment. Follow-up recommendations were communicated and documented using a closed loop communication system. 1. Narrative 06/06/2025 8:[address] CHEST WITHOUT CONTRAST Referring clinician's provided indication for this examination in Epic: * Lung nodule, 6-8mm TECHNIQUE: Multidetector CT of the chest was performed without intravenous contrast using tailored dose modulation. COMPARISON: CT CHEST WITHOUT CONTRAST FINDINGS: Devices/Tubes/Lines: None. Lungs: The central airways are patent. Mild diffuse bronchial thickening, similar to prior. Multiple lower lung predominant scattered lung nodules are similar, the largest measuring 4 mm in the right upper lobe (5; 140) 4 mm in the left lower lobe (5; 288), both remeasured on prior similar fashion. Pleura: No pleural effusion or pneumothorax. Mediastinum: No thyroid nodules. The left cardiac atrium is mildly enlarged, similar to prior. No significant pericardial effusion. Moderate amount of coronary calcifications. Atherosclerotic aorta and branches. Tiny hiatal hernia. Lymph Nodes: No enlarged supraclavicular, axillary, mediastinal, or hilar lymph nodes by CT threshold criteria. Upper Abdomen: Absence/Timing of intravenous contrast limits sensitivity for detecting solid organ findings. Cholecystectomy. Chest Wall: There is a 1.9 x 1.3 cm nodule in the right outer breast, not included in the prior CT jyxyl-ra-nick. Bones: No suspicious lytic or blastic lesions. Degenerative changes. Procedure Note Bailey Higgins MD - 06/06/2025 CT CHEST WITHOUT CONTRAST Referring clinician's provided indication for this examination in Epic: *Lung nodule, 6-8mm TECHNIQUE: Multidetector CT of the chest was performed without intravenouscontrast using tailored dose modulation. COMPARISON: CT CHEST WITHOUT CONTRAST FINDINGS: Devices/Tubes/Lines: None. Lungs: The central airways are patent. Mild diffuse bronchial thickening,similar to prior. Multiple lower lung predominant scattered lung nodulesare similar, the largest measuring 4 mm in the right upper lobe (5; 140) 4mm in the left lower lobe (5; 288), both remeasured on prior similarfashion. Pleura: No pleural effusion or pneumothorax. Mediastinum: No thyroid nodules. The left cardiac atrium is mildlyenlarged, similar to prior. No significant pericardial effusion. Moderateamount of coronary calcifications. Atherosclerotic aorta and branches.Tiny hiatal hernia. Lymph Nodes: No enlarged supraclavicular, axillary, mediastinal, or hilarlymph nodes by CT threshold criteria. Upper Abdomen: Absence/Timing of intravenous contrast limits sensitivityfor detecting solid organ findings. Cholecystectomy. Chest Wall: There is a 1.9 x 1.3 cm nodule in the right outer breast, notincluded in the prior CT [id number]-tc-[id number]. Bones: No suspicious lytic or blastic lesions. Degenerative changes. IMPRESSION: Compared to November 14, 2024: 1. Similar scattered sub-5 mm lung nodules. 2. 1.9 cm nodule in the right outer breast. Recommend a mammogram forfurther assessment. Follow-up recommendations were communicated and documented using a closedloop communication system. 1. Bishop Adams MD IMG CT CHEST Edited Resul t - Final * (ABNORMAL) Lipid panel (05/10/2025 3:01 PM EDT) HDL 63 mg/dL [facility] Comment: Interpretation <40 mg/dL: Low HDL cholesterol (major risk factor for CHD) Greater than or equal to 60 mg/dL: High HDL cholesterol ( negative risk factor for CHD) HDL - cholesterol is affected by a number of factors, e.g. smoking, excerise, hormones, sex and age. CHOLESTEROL 154 0 - 240 mg/dL [facility] TRIGLYCERIDES 176(H) 30 - 160 mg/dL [facility] LDL 56 50 - 129 mg/dL [facility] Comment: LDL levels in terms of risk for coronary heart disease: <100 mg/dL: Optimal 100-129 mg/dL: Near or above optimal 130-159 mg/dL: Borderline high 160-189 mg/dL: High >190 mg/dL: Very High CARDIAC RISK RATIO 2.4(L) 3.3 - 4.4 [facility] Blood 05/10/2025 3:01 PM EDT 05/10/2025 3:02 PM EDT Deonte Callejas MD LAB BLOOD ORDERABLES Final Resul t [facility] [address] [place] [address] * (ABNORMAL) Basic metabolic panel (05/10/2025 3:01 PM EDT) SODIUM 139 133 - 146 mmol/L [facility] CHLORIDE 100 96 - 108 mmol/L [facility] POTASSIUM 3.8 3.3 - 5.1 mmol/L [facility] CO2 31 21 - 35 mmol/L [facility] BUN 20(H) 6 - 19 mg/dL [facility] CREATININE 0.90 0.5 - 1.5 mg/dL [facility] GLUCOSE 150(H) 70 - 99 mg/dL [facility] CALCIUM 9.8 8.4 - 10.3 mg/dL [facility] EGFR 66 >59 mL/min/1.7 3m2 [facility] Comment:Estimated glomerular filtration rate calculated using the CKD-EPI refit equation. ANION GAP 12 10 - 20 mmol/L [facility] Blood 05/10/2025 3:01 PM EDT 05/10/2025 3:02 PM EDT us Deonte Callejas MD LAB BLOOD ORDERABLES Final Resul t [address] [address] * TSH with reflex (10/26/2024 2:00 PM EST) Pathologist [facility] TSH 1.71 0.27 - 4.20 uIU/mL [facility] Blood 10/26/2024 2:00 PM EST 10/26/2024 2:06 PM EST us Deonte Callejas MD LAB BLOOD ORDERABLES Final Resul t Performing Organization Address City/State/[facility] Co de Phone Number [address] [address] * Hepatitis C antibody, qualitative (06/21/2024 1:57 PM EDT) HCV NON-REACTIV E NON-REACTI VE [facility] Blood 06/21/2024 1:57 PM EDT 06/21/2024 2:00 PM EDT us Deonte Callejas MD LAB BLOOD ORDERABLES Final Resul t [facility] [address] [place] [address] * DIABETES EYE EXAM FOR RESULT ENTRY ONLY (03/09/2023) us Leilani De La Paz Andreamckenna [facility] Rajat sondra Result - Final from Last 3 Months or Most Recently Relevant to Health Maintenance Insurance MEDICARE PART A & B Member Subscriber Plan / Payer (Ef fective 2011-Present) Name:Dania Ayala Member ID:[id number] Relation to Subscriber:Self Name:Dania Ayala Subscriber ID:[id number] Payer ID:[id number] Group ID:Not on file Type:Medicare Address: [employer] [facility] [employer] [facility] [address] [place] [address] [place] [employer] MEDEX SUPPLEMENT MEDICARE PART A & B [employer] MEDEX SUPPLEMENT MEDICARE PART A & B [employer] MEDEX SUPPLEMENT MEDICARE PART A & B [employer] MEDEX SUPPLEMENT MEDICARE PART A & B [employer] MEDEX SUPPLEMENT MEDICARE PART A & B [employer] MEDEX SUPPLEMENT MEDICARE PART A & B [employer] MEDEX SUPPLEMENT MEDICARE PART A & B [employer] MEDEX SUPPLEMENT MEDICARE PART A & B [employer] MEDEX SUPPLEMENT Advance Directives For more information, please contact: [phone] (9AM - 5PM [facility], Thursday-Thursday) Documents on File Type Date Recorded Patient Punch Finisher Expl anation Healthcare Proxy 10/15/2022 [facility] Health care Proxy MOLST 10/15/2022 [facility] Care Teams Rn Dermatology Relationship Specialty Start Date End Date Deonte Callejas MD [address] [place] [address] [email or web address] PCP - General Internal Medicine 05/05/23 Rohini Jordan DPM [address] [place] [address] Podiatry 12/13/19 Deonte Callejas MD [address] [place] [address] [email or web address] Insurance Assigned Provider 03/05/24 Beba Valadez MD [address] [place] [address] Ophthalmology 06/21/24 Additional Source Comments The information contained in this document represents components of the legal health record. It is not the complete legal health record.[facility]
--- OUTSIDE RECORDS SUMMARY | 2025-08-29 13:20 | XMS_ITS | Encounter Summary ---
Author Organization [facility] Address [address] [place] [address] Phone Care Team Providers Care Commercial Review Appraiser Name Role Phone Rohini Jordan DPM Unavailable [phone] Deonte Callejas MD Primary Care Provider [phone] Deonte Callejas MD Unavailable Beba Valadez MD Unavailable [phone] Encounter Details Date Type Department Care Team (Late st Contact Info) Description 12/12/2024 Procedure Pass [facility], Ct Scan - [address] [address] Social History Tobacco Use Types Packs/Day Years [...] PM EDT documented as of this encounter Plan of Treatment Upcoming Encounters Date Type Department Care Team (Late st Contact Info) Description 11/10/2025 1:00 PM EST Office Visit [facility] Internal Medicine [address] [place] [address] Deonte Callejas MD [address] [place] [address] [email or web address] 12/25/2025 9:30 AM EST Office Visit [facility] Pulmonary, Allergy and Critical Care Medicine [address] [place] [address] Bishop Adams MD [address] [place] [address] 02/19/2026 10:00 AM EDT Office Visit [facility] [address] [place] [address] Rylee Montero MD 22 [facility], [address] [place] [address] documented as of this encounter Visit Diagnoses Not on filedocumented in this encounter Additional Health Concerns Assessment Noted Time PHQ-9 Depression Total Score: 9 10/07/20 23 10:14 AM EST PHQ-2 Depression Total Score: 2 10/26/20 24 12:46 PM EST documented as of this encounter Care Teams Commercial Review Appraiser Relationship Specialty Start Date End Date Deonte Callejas MD [address] [place] [address] PCP - General Internal Medicine 05/05/23 Rohini Jordan DPM [address] [place] [address] Podiatry 12/13/19 Deonte Callejas MD [address] [place] [address] Insurance Assigned Provider 03/05/24 Beba Valadez MD [address] [place] [address] Ophthalmology 06/21/24 documented as of this encounter Additional Source Comments The information contained in this document represents components of the legal health record. It is not the complete legal health record.[facility]
--- OUTSIDE RECORDS SUMMARY | 2025-08-29 13:20 | XMS_ITS | Encounter Summary ---
Author Organization [facility] Address [address] [place] [address] Phone Care Team Providers Care Anthropologist Physical Name Role Phone Rohini Jordan DPM Unavailable [phone] Deonte Callejas MD Primary Care Provider [phone] Deonte Callejas MD Unavailable Beba Valadez MD Unavailable [phone] Reason for Visit * Reason Comments Medication Refill Encounter Details Date Type Department Care Team (Late st Contact Info) Description 08/26/2025 Refill [facility] [address] [place] [address] Eunice Rutledge CNP 22 [facility], 1st [place] [address] [email or web address] Medication Refill Social History Tobacco Use Types Packs/Day Years [...] as of this encounter Progress Notes * Liza Santana MA - 08/28/2025 9:23 AM EDT Rx Care Gap Status - Instructions for Clinical Staff (prescriber discretion applies): > Mismatch review guide > No future appt: Please schedule if appropriate. Visit Info Last visit: 04/11/2025 Eunice Rutledge CNP - Diabetes and Nutrition [facility] > Requested f/u: Not specified Upcoming visit: None ACTIONS TAKEN BY Liza Santana MA - Visit needed - Scheduled; sent msg to FD; and/or reminded pt. Diabetes Rx Protocol (on Diabetes Registry) - blood sugar diagnostic Criteria met; renew for up to 12 months. Visit in the past 14 months: Yes Clinical criteria: - BMP within past year: Yes - A1c within past 6 months: Yes - Lipid panel within past year: Yes (LDL 56 on 05/10/2025) - Urine microalbumin within past year or on KAMRYN/ARB: Yes Lab Results Component Value Date SODIUM 139 05/10/2025 POTASSIUM 3.8 05/10/2025 CHLORIDE 100 05/10/2025 CO2 31 05/10/2025 BUN 20 (H) 05/10/2025 CREATININE 0.90 05/10/2025 EGFR 66 05/10/2025 Lab Results Component Value Date Hemoglobin A1c 7.6 (*) 08/07/2025 HEMOGLOBIN A1C 8.0 (H) 10/26/2024 MICROALB/CRE RATIO NOT CALCULATED 06/11/2020 URINE MICROALBUMIN <1.2 06/11/2020 Lab Results Component Value Date LDL 56 05/10/2025 HDL 63 05/10/2025 CARDIAC RISK RATIO 2.4 (L) 05/10/2025 TRIGLYCERIDES 176 (H) 05/10/2025 CHOLESTEROL 154 05/10/2025 documented in this encounter Plan of Treatment Upcoming Encounters Date Type Department Care Team (Late st Contact Info) Description 11/10/2025 1:00 PM EST [facility] Visit [facility] [address] [place] [address] Deonte Callejas MD [address] [place] [address] 12/25/2025 9:30 AM EST Office Visit [facility] All[facility] Critical [facility] Medicine [address] [place] [address] Bishop Adams MD [address] [place] [address] 02/19/2026 10:00 AM EDT Office Visit [facility] [address] [place] [address] Rylee Montero MD 22 [facility], 1st [place] [address] documented as of this encounter Visit Diagnoses Diagnosis Type 2 diabetes mellitus without complication, with long-term current use of insulin documented in this encounter Additional Health Concerns Assessment Noted Time PHQ-9 Depression Total Score: 9 10/07/20 23 10:14 AM EST PHQ-2 Depression Total Score: 2 10/26/20 24 12:46 PM EST documented as of this encounter Care Teams Anthropologist Physical Relationship Specialty Start Date End Date Deonte Callejas MD [address] [place] [address] PCP - General Internal Medicine 05/05/23 Rohini Jordan DPM [address] [place] [address] Podiatry 12/13/19 Deonte Callejas MD [address] [place] [address] [email or web address] Insurance Assigned Provider 03/05/24 Beba Valadez MD [address] [place] [address] Ophthalmology 06/21/24 documented as of this encounter Additional Source Comments The information contained in this document represents components of the legal health record. It is not the complete legal health record.[facility]
--- OUTSIDE RECORDS SUMMARY | 2025-08-29 13:21 | XMS_ITS | Patient Health Record ---
Author Organization [facility] Address [address] [place] [address] Care Team Providers Care Forest Technician Name Role Phone Fili Levy MD Primary Care Provider Unavail able Octavio Klein Unavailable [phone] Allergies Allergen (clinical drug ingredient) Drug/Non Drug [...] 1 tablet Orally Once a day Active Lansdowne 3 1000 MG 1 capsule Orally Onc e a day Active NovoLIN N 100 UNIT/ML as directed Subcutaneous BID Active Levothyroxine Sodium 50 MCG 1 tablet on an empty stomach in the morning Orally Once a day Active Chromium Picolate 1000 MCG 1 Orally qd Active Problems Problem Type SNOMED Code ICD Code Onset Dates Problem Status W/U Status Risk Notes Problem 111082255 Encounter for screening for malignant neoplasm of colon (Z12.11) Active confirmed Problem 37039226 Hypertension (I10) Active confirmed Problem Screening for malignant neoplasm of rectum (441435741) Encounter for screening for malignant neoplasm of rectum (Z12.12) Active confirmed Problem 994959503 Anticoagulant long-term use (Z79.01) Active confirmed Plan Of Treatment Future Test Test Name Order Date COLONOSCOPY 12/17/2016 Insurance Providers Payer Name Payer Address Payer Phone Subscriber Number Group Number Insured Name Patient Relationship to Insured Coverage Start Date Coverage End Date MEDICARE OF [place] [address] [place] [address] [phone] [id number] KATELYNN NIXON Self - patient is the insured MEDEX ATTN CLAIMS [address] [place] [phone] [id number] KATELYNN NIXON Self - patient is the insured Medical (General) History Medical History History ICD Code Screening colonoscopy in 200 5--small tubular adenomas removed; colonoscopy 11-15-2010 negative except for diverticulosis and internal hemorrhoids IDDM Hypertension 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
--- OUTSIDE RECORDS SUMMARY | 2025-08-29 13:23 | XMS_ITS | Encounter Summary ---
Author Organization [facility] Address [address] [place] [address] Phone Care Team Providers Care Crepe Machine Operator Name Role Phone Rohini Jordan DPM Unavailable [phone] Deonte Callejas MD Primary Care Provider [phone] Deonte Callejas MD Unavailable Beba Valadez MD Unavailable [phone] Encounter Details Date Type Department Care Team (Late st Contact Info) Description 08/15/2024 Procedure Pass [facility], Ct Scan - [address] [address] Social History Tobacco Use Types Packs/Day Years [...] Description 11/10/2025 1:00 PM EST Office Visit [facility] Internal Medicine [address] [place] [address] Deonte Callejas MD [address] [place] [address] 12/25/2025 9:30 AM EST Office Visit [facility] [address] [place] [address] Bishop Adams MD [address] [place] [address] 02/19/2026 10:00 AM EDT Office Visit [facility] [address] [place] [address] Rylee Montero MD [address] [facility], [address] [place] [address] documented as of this encounter Visit Diagnoses Not on filedocumented in this encounter Additional Health Concerns Assessment Noted Time PHQ-9 Depression Total Score: 9 10/07/20 23 10:14 AM EST PHQ-2 Depression Total Score: 2 10/26/20 24 12:46 PM EST documented as of this encounter Care Teams Crepe Machine Operator Relationship Specialty Start Date End Date Deonte Callejas MD [address] [place] [address] PCP - General Internal Medicine 05/05/23 Rohini Jordan DPM [address] [place] [address] Podiatry 12/13/19 Deonte Callejas MD [address] [place] [address] [email or web address] Insurance Assigned Provider 03/05/24 Beba Valadez MD [address] [place] [address] Ophthalmology 06/21/24 documented as of this encounter Additional Source Comments The information contained in this document represents components of the legal health record. It is not the complete legal health record.[facility]
--- OUTSIDE RECORDS SUMMARY | 2025-08-29 13:23 | XMS_ITS | Encounter Summary ---
Author Organization [facility] Address [address] [place] [address] Phone Care Team Providers Care Snack Stewardess Name Role Phone Rohini Jordan DPM Unavailable [phone] Dimas Feliz MD Unavailable [phone] Deonte Callejas MD Primary Care Provider [phone] Deonte Callejas MD Unavailable Beba Valadez MD Unavailable [phone] Encounter Details Date Type Department Care Team (Late st Contact Info) Description 06/16/2023 Telephone [facility] [address] [place], [place] [phone] Hodan Desouza NP [address] [place] [phone] [email or web address] Social History Tobacco Use Types Packs/Day Years Used Date Smoking Tobacco: Never Passive Smoke Exposure: Past Smokeless Tobacco: Never Alcohol Use Standard Drinks/Week Comments Yes 0 (1 standard drink = 0.6 oz pur e alcohol) once every few months Education Answer Date Recorded Are you interested [...] Description 11/10/2025 1:00 PM EST Office Visit [facility] Internal Medicine [address] [place] [address] Deonte Callejas MD [address] [place] [address] 12/25/2025 9:30 AM EST Office Visit [facility] [address] [place] [address] Bishop Adams MD [address] [place] [address] 02/19/2026 10:00 AM EDT Office Visit [facility] [address] [place] [address] Rylee Montero MD [address] [place] [address], [address] [place] [address] documented as of this encounter Visit Diagnoses Not on filedocumented in this encounter Additional Health Concerns Assessment Noted Time PHQ-2 Depression Total Score: 1 09/23/20 21 12:07 PM EDT documented as of this encounter Care Teams Snack Stewardess Relationship Specialty Start Date End Date Deonte Callejas MD [address] [place] [address] PCP - General Internal Medicine 05/05/23 [place] [address] Podiatry 12/13/19 Dimas Feliz MD [address] [place] [address] Insurance Assigned Provider 03/09/21 03/05/24 Deonte Callejas MD [address] [place] [address] Insurance Assigned Provider 03/05/24 Beba Valadez MD [address] [place] [address] Ophthalmology 06/21/24 documented as of this encounter Additional Source Comments The information contained in this document represents components of the legal health record. It is not the complete legal health record.[facility]
== END 2025-08-29 12:18 | disposition home or self-care (01) ==
LOC: HO.MAMMO 12:17
PROVIDERS: PCP Internal Medicine; Visit Provider Internal Medicine
DX: N63.11 Unspecified lump in the right breast, upper outer quadrant (principal)
CPT/HCPCS: 76642; 77062; 77066

== ENCOUNTER → 2025-08-29 12:30 | Outpatient (BNV) | payer MEDICARE, SELFPAY | PROVIDERS: PCP Internal Medicine; Visit Provider Radiology Body Imaging | DX: N60.01 Solitary cyst of right breast (principal) | CPT/HCPCS: 76642; 77066; G0279 ==

== ENCOUNTER 2025-10-16 13:39 | Outpatient (REF) | payer MEDICARE, SELFPAY | END 2025-10-16 13:40 | disposition home or self-care (01) | LOC: HO.MAMMO 13:39 | PROVIDERS: PCP Internal Medicine; Visit Provider Internal Medicine | DX: N64.4 Mastodynia (principal) | CPT/HCPCS: 76642 ==

== ENCOUNTER → 2025-10-16 14:00 | Outpatient (BNV) | payer MEDICARE, SELFPAY | PROVIDERS: PCP Internal Medicine; Visit Provider Radiology Body Imaging | DX: N64.4 Mastodynia (principal) | CPT/HCPCS: 76642 ==